=== PATIENT | female | born 1935 | race Caucasian/White ===

== ENCOUNTER → 2017-06-08 | Outpatient (CLI) | payer MEDICARE ==
[~2017-06-08] MED LIST: ASPIRIN 32325 MG/TAB PO; CATAPRES-TTS 20.2 M1 TD; COREG 25MG25 MG/TAB PO; CRANBERRY FRUI405 MG PO; DEMADEX 20MG20 M1 PO; ISOSORBIDE MON120 MG PO; K-DUR20 MEQ PO; KLONOPIN 0.5MG0.5 MG PO; LEVAQUIN 5500 MG/TA1 PO; LEVEMIR100 U/ML SQ; LIPITOR 80MG80 MG PO; MULTI VITAMINS1 TAB PO; NITRO-DUR0.1 MG/PAT TD; NITROSTAT0.4 MG/TAB SL; NOVOLOG FLEX100 U/ML SQ; PAXIL 20MG20 MG PO; PLAVIX 75MG TAB75 MG PO; PRILOSEC 20MG20 MG PO; PRINIVIL10 MG PO; REMERON 15M15 MG/TA1 PO; SYNTHROID 0.0.025 MG PO; VITAMIN C500 MG PO; ZANTAC 150150 MG
== END ==
LOC: COL.RAD 14:56
DX: Z01.812 Encounter for preprocedural laboratory examination (principal); R06.02 Shortness of breath
CPT/HCPCS: J7050; Q9967

== ENCOUNTER 2017-06-27 02:31 | Inpatient (IN) | payer MEDICARE ==
[~2017-06-27] VITALS: Ht 157.5 cm; Wt 79.1 kg
[2017-06-27] VITALS (224 sets, daily range): BP systolic 73–216; BP diastolic 31–96; PULSE 55–92; TEMP 98.1–101.6; O2SAT 80–100
[2017-06-27 03:31] LABS: BASO % 0.3 % (0.0-2.0); EOS # 0.1 (0.0-0.7); GRAN # 4.8 (1.4-6.5); GRAN % 71.5 % (42.2-75.2); LYMPH # 1.1 (1.2-3.4); LYMPH % 15.8 % (20.0-51.0); MEAN CELL VOLUME 95 fl (80.0-100.0); MEAN CORPUSCULAR HGB CONC 33 g/dl (33.0-37.0); MEAN PLATELET VOLUME 10.4 fl (7.4-10.4); MONO # 0.8 (0.1-0.6); MONO % 11.3 % (1.7-9.3); PLATELET COUNT 262 K/mm3 (130-400); RED BLOOD COUNT 3.35 M/mm3 (4.10-5.30); REDCELL DISTRIBUTION WIDTH-CV 13.2 % (11.5-14.5)
[2017-06-27 03:33] LABS: HEMATOCRIT 31.7 % (37.0-47.0); HEMOGLOBIN 10.3 g/dl (12.5-16.0); MEAN CORPUSCULAR HEMOGLOBIN 31 pg (27.0-31.0)
[2017-06-27 03:36] LABS: COLLECTION METHOD CATHETER
[2017-06-27 03:37] LABS: INFLUENZA A NEGATIVE; INFLUENZA B POSITIVE
[2017-06-27 03:42] LABS: ALBUMIN 3.6 gm/dL (3.5-5.0); BILIRUBIN,TOTAL 0.6 mg/dL (0.0-1.0); CALCIUM 9.1 mg/dL (8.4-10.2); CREATININE, serum 1.52 mg/dL (0.52-1.25); POTASSIUM 3.5 mmol/L (3.4-5.0)
[2017-06-27 03:44] LABS: HYALINE CAST >12 /lpf; MUCOUS Present /lpf; PH 5 (5-8); SQUAMOUS EPITHELIAL 0-2 /hpf; URINE APPEARANCE Cloudy; URINE BACTERIA Many /hpf; URINE BILIRUBIN Negative (NEGATIVE); URINE BLOOD 1+ (NEGATIVE); URINE COLOR Yellow; URINE GLUCOSE 1+ (NEGATIVE); URINE KETONE Negative (NEGATIVE); URINE LEUKOCYTE ESTERASE 2+ (NEGATIVE); URINE NITRATE Negative (NEGATIVE); URINE PROTEIN(semi-quant) 1+ (NEGATIVE); URINE RBC 0-2 /hpf; URINE UROBILINOGEN Negative (NEGATIVE)
[2017-06-28] VITALS (1341 sets, daily range): BP systolic 125–236; BP diastolic 42–94; PULSE 58–118; TEMP 99–102.1; O2SAT 30–100
[2017-06-28 06:09] LABS: BASO % 0.2 % (0.0-2.0); EOS # 0.1 (0.0-0.7); LYMPH # 1.2 (1.2-3.4); LYMPH % 25.1 % (20.0-51.0); MEAN CELL VOLUME 96 fl (80.0-100.0); MEAN CORPUSCULAR HGB CONC 32 g/dl (33.0-37.0); MEAN PLATELET VOLUME 10.9 fl (7.4-10.4); MONO # 0.6 (0.1-0.6); MONO % 12.5 % (1.7-9.3); PLATELET COUNT 229 K/mm3 (130-400); REDCELL DISTRIBUTION WIDTH-CV 13.4 % (11.5-14.5)
[2017-06-28 06:16] LABS: HEMATOCRIT 29.8 % (37.0-47.0); HEMOGLOBIN 9.5 g/dl (12.5-16.0); MEAN CORPUSCULAR HEMOGLOBIN 31 pg (27.0-31.0)
[2017-06-28 06:24] LABS: CALCIUM 7.8 mg/dL (8.4-10.2); CREATININE, serum 1.22 mg/dL (0.52-1.25)
[2017-06-28 08:01] LABS: ARTERIAL BLD GAS O2 SATURATION 96.9 % (92-100); ARTERIAL BLD GAS TCO2 CT 16.9; ARTERIAL BLOOD GAS HCO3 15.8 meq/L (22-26); ARTERIAL BLOOD GAS PCO2 34.7 mmHg (35-45); ARTERIAL BLOOD GAS PO2 107.1 mmHg (80-100); ARTERIAL BLOOD GAS pH 7.28 (7.35-7.45)
[2017-06-28 08:14] LABS: ARTERIAL BLD GAS O2 SATURATION 96.4 % (92-100); ARTERIAL BLOOD GAS BASE EXCESS -9.1 (-2-2); ARTERIAL BLOOD GAS PCO2 32.4 mmHg (35-45); ARTERIAL BLOOD GAS PO2 93.9 mmHg (80-100); ARTERIAL BLOOD GAS pH 7.31 (7.35-7.45)
[2017-06-28 09:09] LABS: ANION GAP 11 mmol/L (7-16); BLOOD UREA NITROGEN 23 mg/dL (7-17); CARBON DIOXIDE 20 mmol/L (22-30); CHLORIDE 105 mmol/L (98-107); CREATININE, serum 1.28 mg/dL (0.52-1.25); POTASSIUM 4.5 mmol/L (3.4-5.0); SODIUM 136 mmol/L (137-145)
[2017-06-28 09:17] LABS: GLUCOSE 505 mg/dL (74-106)
[2017-06-28 09:26] LABS: ACETONE,SERUM NEGATIVE
[2017-06-29] VITALS (950 sets, daily range): BP systolic 118–156; BP diastolic 36–75; PULSE 64–79; TEMP 98.3–99.3; O2SAT 38–100
[2017-06-29 05:33] LABS: BASO % 0.2 % (0.0-2.0); EOS # 0.1 (0.0-0.7); EOS % 1.1 % (0-4.0); GRAN # 3.2 (1.4-6.5); GRAN % 59.7 % (42.2-75.2); LYMPH # 1.6 (1.2-3.4); LYMPH % 30.3 % (20.0-51.0); MEAN CELL VOLUME 97 fl (80.0-100.0); MEAN CORPUSCULAR HGB CONC 32 g/dl (33.0-37.0); MEAN PLATELET VOLUME 10.7 fl (7.4-10.4); MONO # 0.4 (0.1-0.6); MONO % 8.3 % (1.7-9.3); PLATELET COUNT 195 K/mm3 (130-400); RED BLOOD COUNT 3.07 M/mm3 (4.10-5.30); REDCELL DISTRIBUTION WIDTH-CV 13.7 % (11.5-14.5)
[2017-06-29 05:39] LABS: HEMATOCRIT 29.7 % (37.0-47.0); HEMOGLOBIN 9.5 g/dl (12.5-16.0); MEAN CORPUSCULAR HEMOGLOBIN 31 pg (27.0-31.0)
[2017-06-29 05:42] LABS: CALCIUM 7.7 mg/dL (8.4-10.2); CREATININE, serum 1.28 mg/dL (0.52-1.25); MAGNESIUM 1.7 mg/dL (1.6-2.3); PHOSPHOROUS 3.4 mg/dL (2.5-4.5); POTASSIUM 3.5 mmol/L (3.4-5.0)
[2017-06-30 03:57] VITALS: BP 175/54; PULSE 72; TEMP 98.9
[2017-06-30 07:29] LABS: BASO % 0.2 % (0.0-2.0); EOS # 0.2 (0.0-0.7); EOS % 4.2 % (0-4.0); GRAN # 2.7 (1.4-6.5); GRAN % 52.6 % (42.2-75.2); LYMPH # 1.8 (1.2-3.4); LYMPH % 36.6 % (20.0-51.0); MEAN CELL VOLUME 98 fl (80.0-100.0); MEAN CORPUSCULAR HGB CONC 31 g/dl (33.0-37.0); MEAN PLATELET VOLUME 11.2 fl (7.4-10.4); MONO # 0.3 (0.1-0.6); MONO % 6.2 % (1.7-9.3); PLATELET COUNT 199 K/mm3 (130-400); RED BLOOD COUNT 3.04 M/mm3 (4.10-5.30); REDCELL DISTRIBUTION WIDTH-CV 13.8 % (11.5-14.5)
[2017-06-30 07:45] LABS: CALCIUM 8.7 mg/dL (8.4-10.2); CREATININE, serum 1.01 mg/dL (0.52-1.25); MAGNESIUM 2.4 mg/dL (1.6-2.3); PHOSPHOROUS 2.8 mg/dL (2.5-4.5); POTASSIUM 4.7 mmol/L (3.4-5.0)
[2017-06-30 07:47] LABS: HEMATOCRIT 29.8 % (37.0-47.0); HEMOGLOBIN 9.2 g/dl (12.5-16.0); MEAN CORPUSCULAR HEMOGLOBIN 30 pg (27.0-31.0)
[2017-06-30 08:40] VITALS: BP 180/91; PULSE 78; TEMP 97.7
[2017-06-30 11:48] VITALS: BP 152/72; PULSE 70; TEMP 99.5
[2017-06-30 16:41] VITALS: BP 205/75; PULSE 60; TEMP 98.4
[2017-06-30 19:43] VITALS: BP 196/61; PULSE 67; TEMP 97.9
[2017-06-30 23:55] VITALS: BP 218/69; PULSE 76; TEMP 98.3
[2017-07-01] VITALS (7 sets, daily range): BP systolic 144–198; BP diastolic 36–71; PULSE 64–81; TEMP 97.6–98.6
[2017-07-01 06:39] LABS: MEAN CELL VOLUME 97 fl (80.0-100.0); MEAN CORPUSCULAR HGB CONC 31 g/dl (33.0-37.0); MEAN PLATELET VOLUME 11.3 fl (7.4-10.4); PLATELET COUNT 187 K/mm3 (130-400); RED BLOOD COUNT 2.98 M/mm3 (4.10-5.30); REDCELL DISTRIBUTION WIDTH-CV 13.8 % (11.5-14.5)
[2017-07-01 06:50] LABS: CALCIUM 8.8 mg/dL (8.4-10.2); CREATININE, serum 0.78 mg/dL (0.52-1.25); POTASSIUM 4.3 mmol/L (3.4-5.0)
[2017-07-01 06:53] LABS: HEMATOCRIT 28.9 % (37.0-47.0); MEAN CORPUSCULAR HEMOGLOBIN 30 pg (27.0-31.0)
[2017-07-01 08:48] LABS: BAND 35 % (0-10); LYMPHOCYTE 34 % (20.0-51.0); MYELOCYTE 1 % (0-0); NEUTROPHILS 29 % (42.0-75.2); OVALOCYTES 1+; PLATELET ESTIMATE NORMAL (NORMAL)
[2017-07-02 03:32] VITALS: BP 186/69; PULSE 82; TEMP 98.9
[2017-07-02 04:40] VITALS: BP 168/63; PULSE 77
[2017-07-02 07:23] LABS: MEAN CELL VOLUME 97 fl (80.0-100.0); MEAN CORPUSCULAR HGB CONC 32 g/dl (33.0-37.0); MEAN PLATELET VOLUME 11.4 fl (7.4-10.4); PLATELET COUNT 215 K/mm3 (130-400); RED BLOOD COUNT 3.13 M/mm3 (4.10-5.30); REDCELL DISTRIBUTION WIDTH-CV 13.9 % (11.5-14.5)
[2017-07-02 07:24] LABS: HEMATOCRIT 30.2 % (37.0-47.0); HEMOGLOBIN 9.6 g/dl (12.5-16.0); MEAN CORPUSCULAR HEMOGLOBIN 31 pg (27.0-31.0)
[2017-07-02 07:34] LABS: CALCIUM 9.1 mg/dL (8.4-10.2); CREATININE, serum 0.79 mg/dL (0.52-1.25); POTASSIUM 3.9 mmol/L (3.4-5.0)
[2017-07-02 08:37] LABS: BAND 5 % (0-10); EOSINOPHIL 3 % (0-4); HYPOCHROMIA 2+; LYMPHOCYTE 22 % (20.0-51.0); NEUTROPHILS 67 % (42.0-75.2); PLATELET ESTIMATE NORMAL (NORMAL)
[2017-07-02 09:07] VITALS: BP 158/60; PULSE 72; TEMP 99
[2017-07-02 12:41] VITALS: BP 139/40; PULSE 66; TEMP 98.9
[2017-07-02 16:16] VITALS: BP 169/34; PULSE 60; TEMP 99.3
[2017-07-02 19:29] VITALS: BP 153/40; PULSE 66; TEMP 98.3
[2017-07-03 00:14] VITALS: BP 159/48; PULSE 71; TEMP 98.5
[2017-07-03 03:29] VITALS: BP 190/48; PULSE 68; TEMP 98.2
[2017-07-03 08:01] VITALS: BP 183/65; PULSE 87; TEMP 99.1
[2017-07-03 12:13] VITALS: BP 177/54; PULSE 65; TEMP 98.5
[2017-07-03 15:48] VITALS: BP 172/56; PULSE 65; TEMP 98.2
[2017-07-03 20:14] VITALS: BP 169/52; PULSE 60; TEMP 98
[2017-07-04 00:18] VITALS: BP 124/43; PULSE 77; TEMP 98.2
[2017-07-04 03:45] VITALS: BP 161/50; PULSE 65; TEMP 99
[2017-07-04 08:04] VITALS: BP 194/68; PULSE 68; TEMP 98.2
[2017-07-04] MEDS ORDERED: IMDUR 60MG60 MG/TAB PO (09:56)
[2017-07-04] MEDS ORDERED: ZESTRIL 10MG10 MG PO (09:57)
[2017-07-04] MEDS ORDERED: NORVASC 5MG5 MG/TAB PO (09:57)
[2017-07-04] MEDS ORDERED: LEVEMIR FLEX100 U/ML SQ (09:58)
[2017-07-04] MEDS ORDERED: NOVLOG SQ (09:58)
[2017-07-04] MEDS ORDERED: ZITHROMAX 250M250 MG PO (10:01)
[2017-07-04 10:02] VITALS: BP 195/55
[2017-07-04 10:17] VITALS: BP 172/64
[2017-07-04 12:25] VITALS: BP 154/49; PULSE 60; TEMP 98.3
== END 2017-07-04 12:52 | disposition home or self-care (01) | DRG 193 ==
LOC: COL.ER 02:31 → ICU 04:19 → MEDICAL 04:19 → ICU 14:30 → MEDICAL 06-29 18:10
PROVIDERS: Emergency Medicine; Internal Medicine; Internal Medicine Pulmonary Disease; Nurse Practitioner; Physician Assistant
PROC: 02HV33Z Insertion of Infusion Device into Superior Vena Cava, Percutaneous Approach (ICD-10-PCS; principal; 2017-06-27)
DX: J10.00 Influenza due to other identified influenza virus with unspecified type of pneumonia (principal); I50.33 Acute on chronic diastolic (congestive) heart failure; J96.01 Acute respiratory failure with hypoxia; N39.0 Urinary tract infection, site not specified; N17.9 Acute kidney failure, unspecified; I13.0 Hypertensive heart and chronic kidney disease with heart failure and stage 1 through stage 4 chronic kidney disease, or unspecified chronic kidney disease; E87.1 Hypo-osmolality and hyponatremia; I16.1 Hypertensive emergency; E87.2 Acidosis; E11.65 Type 2 diabetes mellitus with hyperglycemia; E11.22 Type 2 diabetes mellitus with diabetic chronic kidney disease; N18.9 Chronic kidney disease, unspecified; E87.6 Hypokalemia; I25.10 Atherosclerotic heart disease of native coronary artery without angina pectoris; B96.20 Unspecified Escherichia coli [E. coli] as the cause of diseases classified elsewhere; Z79.4 Long term (current) use of insulin; I73.9 Peripheral vascular disease, unspecified; Z87.891 Personal history of nicotine dependence; D64.9 Anemia, unspecified
CPT/HCPCS: 99223; 99223-AI; 99232-AI; 99233-AI; 99239; C1751; C1894; J0360; J0696; J1644; J1815; J1940; J2270; J2543; J3370; J3475; J7030; J7040; J7050

== ENCOUNTER → 2018-02-02 | Outpatient (REF) ==
[~2018-02-02] MED LIST changes: +IMDUR 60MG60 MG/TAB PO; +LEVEMIR FLEX100 U/ML SQ; +NORVASC 5MG5 MG/TAB PO; +NOVLOG SQ; +ZESTRIL 10MG10 MG PO; +ZITHROMAX 250M250 MG PO
[2018-02-02 09:36] LABS: COLLECTION METHOD CATHETER
[2018-02-02 09:50] LABS: MUCOUS Present /lpf; PH 6 (5-8); SQUAMOUS EPITHELIAL None Seen /hpf; URINE APPEARANCE Clear; URINE BACTERIA Occasional /hpf; URINE BILIRUBIN Negative (NEGATIVE); URINE BLOOD 3+ (NEGATIVE); URINE COLOR Yellow; URINE GLUCOSE Negative (NEGATIVE); URINE KETONE Negative (NEGATIVE); URINE LEUKOCYTE ESTERASE 1+ (NEGATIVE); URINE NITRATE Positive (NEGATIVE); URINE PROTEIN(semi-quant) 1+ (NEGATIVE); URINE RBC >50 /hpf; URINE UROBILINOGEN Negative (NEGATIVE)
== END ==
LOC: ZCOL.LAB 09:35 → ZLAB.STJ 09:35
PROVIDERS: Internal Medicine
DX: R41.82 Altered mental status, unspecified (principal)

== ENCOUNTER 2018-12-24 02:49 | Inpatient (IN) | payer MEDICARE ==
[~2018-12-24] VITALS: Ht 157.5 cm; Wt 79.5 kg
[2018-12-24 04:47] LABS: BASO % 0.2 % (0.0-2.0); EOS # 0.2 (0.0-0.7); EOS % 1.5 % (0-4.0); GRAN # 9.3 (1.4-6.5); GRAN % 81.6 % (42.2-75.2); HEMOGLOBIN 11.9 g/dl (12.5-16.0); LYMPH # 1.2 (1.2-3.4); LYMPH % 10.1 % (20.0-51.0); MEAN CELL VOLUME 97 fl (80.0-100.0); MEAN CORPUSCULAR HEMOGLOBIN 32 pg (27.0-31.0); MEAN CORPUSCULAR HGB CONC 33 g/dl (33.0-37.0); MEAN PLATELET VOLUME 10.4 fl (7.4-10.4); MONO # 0.7 (0.1-0.6); MONO % 6.2 % (1.7-9.3); PLATELET COUNT 280 K/mm3 (130-400); RED BLOOD COUNT 3.76 M/mm3 (4.10-5.30); REDCELL DISTRIBUTION WIDTH-CV 14.8 % (11.5-14.5)
[2018-12-24 04:49] LABS: HEMATOCRIT 36.6 % (37.0-47.0)
[2018-12-24 04:52] LABS: INR 0.9 (0.8-3.0); PROTHROMBIN TIME 10.9 SECONDS (9.7-12.8)
[2018-12-24 04:55] LABS: PARTIAL THROMBOPLASTIN TIME 26.9 SECONDS (26.0-37.0)
[2018-12-24] MEDS ORDERED: RANEXA 500MG T500 MG PO (04:57)
[2018-12-24] MEDS ORDERED: CATAPRES-TTS 20.2 M1 TD (05:10)
[2018-12-24] MEDS ORDERED: LASIX 20MG TABL20 MG PO ×2 (05:10→05:16)
[2018-12-24 05:11] LABS: TROPONIN-I 0.029 ng/mL (0.000-0.035)
[2018-12-24] MEDS ORDERED: PAXIL 20MG20 MG PO (05:17)
[2018-12-24] MEDS ORDERED: CIPRO 500MG TA500 MG PO (05:20)
[2018-12-24] MEDS ORDERED: PLAVIX 75MG TAB75 MG PO (05:21)
[2018-12-24] MEDS ORDERED: ISOSORBIDE MON120 MG PO (05:23)
[2018-12-24] MEDS ORDERED: KLONOPIN 0.5MG0.5 MG PO (05:23)
[2018-12-24 05:24] LABS: ALANINE AMINOTRANSFERASE < 6 U/L (9-52); ALBUMIN 3.8 gm/dL (3.5-5.0); ALKALINE PHOSPHATASE 90 U/L (50-136); ANION GAP 12 mmol/L (7-16); AST,SGOT 22 U/L (15-37); BILIRUBIN,TOTAL 0.6 mg/dL (0.0-1.0); BLOOD UREA NITROGEN 27 mg/dL (7-17); CALCIUM 9.2 mg/dL (8.4-10.2); CARBON DIOXIDE 24 mmol/L (22-30); CHLORIDE 106 mmol/L (98-107); CREATININE, serum 1.39 (0.52-1.25); GLUCOSE 142 mg/dL (74-106); POTASSIUM 3.8 mmol/L (3.4-5.0); SODIUM 143 mmol/L (137-145); TOTAL PROTEIN 7.5 gm/dL (6.4-8.2)
[2018-12-24] MEDS ORDERED: COREG 25MG25 MG/TAB PO (05:24)
[2018-12-24] MEDS ORDERED: ULTRAM 50MG TAB50 MG PO (05:24)
[2018-12-24] MEDS ORDERED: REMERON 15M15 MG/TA1 PO (05:24)
[2018-12-24] MEDS ORDERED: NITROSTAT0.4 MG/TAB SL (05:25)
[2018-12-24] MEDS ORDERED: THE MEDICINE S200 M2 PO (05:25)
[2018-12-24] MEDS ORDERED: NITRO-DUR0.2 MG/PAT TD (05:25)
[2018-12-24] MEDS ORDERED: LEVOXYL0.05 MG PO (05:26)
[2018-12-24] MEDS ORDERED: LIPITOR 80MG80 MG PO ×2 (05:26→20:10)
[2018-12-24] MEDS ORDERED: ZANTAC 300300 MG PO (05:26)
[2018-12-24] MEDS ORDERED: ARICEPT 5MG PO (05:27)
[2018-12-24] MEDS ORDERED: ASPIRIN 81M81 MG/TA2 PO (08:12)
[2018-12-24] MEDS ORDERED: NOVOLOG FLEX100 U/ML SQ (08:13)
[2018-12-24] MEDS ORDERED: LEVEMIR100 U/ML SQ (08:13)
--- NOTE | 2018-12-24 10:51 | NUR ---
Dr Doll notified of consult.
[2018-12-24 11:02] VITALS: BP 184/58; PULSE 65; TEMP 98.8
--- NOTE | 2018-12-24 11:30 | NUR ---
Patient alert and oriented, answers questions appropriately. See initial assessment. Lungs decreased in bases, clear in upper lobes. Heart tones audible. Pulses palpable. No edema noted. INT in right foot, flushes well. No c/o at this time.
[2018-12-24 16:35] VITALS: BP 184/60; PULSE 76; TEMP 98.5
[2018-12-24 20:10] VITALS: BP 186/54; PULSE 65; TEMP 98.9
[2018-12-24 23:34] VITALS: BP 190/77
[2018-12-24 23:45] VITALS: BP 155/79; PULSE 90; TEMP 97.8
--- NOTE | 2018-12-24 23:51 | NUR ---
Patient blood pressure elevated when this nurse came on shift. Daughter spoke with this nurse about Lasix order and she was told it was going to be BID. Terra called for clarification. Ordered a 1x dose of 40mg IV Lasix to be given now, along with the hydralazine. Medications administered and education provided to daughter and patient. Blood pressure recheck continued to be elevated. Terra notified at 2310 of elevated blood pressure of 190/77. Ordered another dose of 20mg IV Hydralazine and to recheck blood pressure in 15 minutes. At 2330 patient's blood pressure was 155/79. Terra updated. Patient in no distress during any of the hypertension. Noted to grunt when she breathes, but states she has no shortness of breath. Slight edema noted to upper arms. Daughter states she thinks her face looks a little puffier than normal. Bilateral lung bases diminished. Will continue to monitor patient closely.
[2018-12-25] VITALS (8 sets, daily range): BP systolic 72–168; BP diastolic 46–80; PULSE 57–94; TEMP 97.9–99.1
--- NOTE | 2018-12-25 00:15 | NUR ---
BP rechecked. Patient continent in pullup. Denies need for toileting.
--- NOTE | 2018-12-25 05:58 | NUR ---
Patient continued to be nauseous until Phenergan was given and she stated this was effective. Noted to rest better after this. Incontinence cares provided this shift by staff. Patient denies any other needs.
--- NOTE | 2018-12-25 07:19 | NUR ---
Report from Silva SHAHID.
[2018-12-25 08:02] LABS: BASO % 0.3 % (0.0-2.0); EOS # 0.2 (0.0-0.7); EOS % 2.6 % (0-4.0); GRAN # 6.1 (1.4-6.5); HEMATOCRIT 38.3 % (37.0-47.0); HEMOGLOBIN 12.5 g/dl (12.5-16.0); LYMPH # 1.7 (1.2-3.4); LYMPH % 19.5 % (20.0-51.0); MEAN CELL VOLUME 96 fl (80.0-100.0); MEAN CORPUSCULAR HEMOGLOBIN 31 pg (27.0-31.0); MEAN CORPUSCULAR HGB CONC 33 g/dl (33.0-37.0); MONO # 0.7 (0.1-0.6); MONO % 8.4 % (1.7-9.3); PLATELET COUNT 289 K/mm3 (130-400); REDCELL DISTRIBUTION WIDTH-CV 14.7 % (11.5-14.5)
[2018-12-25 08:25] LABS: CALCIUM 9.7 mg/dL (8.4-10.2); CREATININE, serum 1.51 (0.52-1.25); POTASSIUM 3.6 mmol/L (3.4-5.0)
--- NOTE | 2018-12-25 10:22 | NUR ---
PT UP TO SIDE OF BED WITH OT, AM MEDS GIVEN. IV TO RIGHT FOOT. ASKED FOR AND RECIEVED ORDER FOR PICC LINE PLACEMENT. PT BACK TO BED AFTER THERAPY NOW SLEEPING.
--- NOTE | 2018-12-25 11:49 | NUR ---
PT O2 SATS DROPPING WHEN SLEEPING PLACED PT ON OXYMASK WITH [address] WORKMAN AND CLAUDINE JENKINS.
--- NOTE | 2018-12-25 14:30 | NUR ---
Attempted to obtain consent for PICC placement by patient. Patient unable to give consent. Attempted to contact patient's daughter and her cell phone is unable to receive placement on messages at this time. Started number 20 Angiocath peripheral IV in right AC area with ultasound. Primary care nurse remove IV site in her foot. Plan is to place PICC in a.m.
--- NOTE | 2018-12-25 15:31 | NUR ---
CARL met with the patient to discuss discharge plan. The patient lives in [place] with her daughter, Dana (ph#[phone]). She reports independence with ADLs and has a cane, walker, and wheelchair. She states she does not have any home health services. The patient's PCP is Dr. Keanu Benavides and she receives her medications at the [facility] in [place]. She reports no difficulties obtaining her meds. The patient does not have advanced directives and she was not interested in completing them at this time. CARL then discussed occupational therapies recommendation of home health. The patient reports that she is not interested in any home health services at this time. SW to continue to follow to ensure a safe discharge.
--- NOTE | 2018-12-25 18:55 | NUR ---
REPORT TO AMY SHAHID.
--- NOTE | 2018-12-25 21:00 | NUR ---
HS meds reviewed and given. Patient drowsy at this time. See vitals/low bp reading and then done manually RA. Patient quiet and denies pain or needs. States is not short of breath. Oxymask on 3.5l oxygen.
[2018-12-26] VITALS (10 sets, daily range): BP systolic 92–160; BP diastolic 37–68; PULSE 59–75; TEMP 97.5–98.9
--- NOTE | 2018-12-26 00:15 | NUR ---
BP rechecked by this nurse. Patient initially resting with eyes closed. Denies need for toileting. Continent in pullup at this time.
--- NOTE | 2018-12-26 02:16 | NUR ---
Patient rests on right side. Respirations with ease.
--- NOTE | 2018-12-26 05:28 | NUR ---
Awakened for am med and returns to resting with eyes closed. Has had quiet night.
--- NOTE | 2018-12-26 10:49 | NUR ---
Patient up in chair. She did well with breakfast. Patient Bp rechecked. Used larger cuff size on upper arm & did even check on forearm with smaller cuff. Patient Bp very varied between arms-hospitalist team made aware. Patient not yet given her am meds, also not yet obtained am labs. Labs team unable to draw blood-senior data warehouse architect made aware.
--- NOTE | 2018-12-26 12:08 | NUR ---
First visit from the photo studio assistant. No needs right now.
[2018-12-26 12:16] LABS: BASO % 0.3 % (0.0-2.0); EOS # 0.4 (0.0-0.7); EOS % 4.1 % (0-4.0); GRAN # 6.6 (1.4-6.5); GRAN % 73.5 % (42.2-75.2); HEMOGLOBIN 11.4 g/dl (12.5-16.0); LYMPH # 1.3 (1.2-3.4); LYMPH % 14.5 % (20.0-51.0); MEAN CELL VOLUME 99 fl (80.0-100.0); MEAN CORPUSCULAR HEMOGLOBIN 32 pg (27.0-31.0); MEAN CORPUSCULAR HGB CONC 32 g/dl (33.0-37.0); MEAN PLATELET VOLUME 10.6 fl (7.4-10.4); MONO # 0.7 (0.1-0.6); MONO % 7.4 % (1.7-9.3); PLATELET COUNT 241 K/mm3 (130-400); RED BLOOD COUNT 3.61 M/mm3 (4.10-5.30); REDCELL DISTRIBUTION WIDTH-CV 14.4 % (11.5-14.5)
[2018-12-26 12:20] LABS: HEMATOCRIT 35.8 % (37.0-47.0)
[2018-12-26 12:21] LABS: CALCIUM 8.7 mg/dL (8.4-10.2); CREATININE, serum 2.12 (0.52-1.25); MAGNESIUM 1.9 mg/dL (1.6-2.3); POTASSIUM 3.9 mmol/L (3.4-5.0)
--- NOTE | 2018-12-26 13:30 | NUR ---
CARL met with the patient and patient's daughter, Dana, to review discharge plan and to discuss occupational therapies recommendation of home health and how she is walking 150 ft with physical therapy. The patient reports that she would like to return home. The patient's daughter reports that the patient has been to [facility] in the past and that they may be considering SNF upon discharge. The patient's daughter reports that she would like to discuss SNF with the patient and then come to a decision on home health vs SNF. CARL to follow up with the patient and patient's daughter tomorrow morning, 12/27. CARL to continue to follow.
[2018-12-26 15:49] LABS: COLLECTION METHOD CLEAN CATCH
[2018-12-26 16:09] LABS: MUCOUS Present /lpf; PH 5 (5-8); URINE APPEARANCE Hazy; URINE BACTERIA None Seen /hpf; URINE BILIRUBIN Negative (NEGATIVE); URINE BLOOD Negative (NEGATIVE); URINE COLOR Yellow; URINE GLUCOSE 3+ (NEGATIVE); URINE KETONE Negative (NEGATIVE); URINE LEUKOCYTE ESTERASE Negative (NEGATIVE); URINE NITRATE Negative (NEGATIVE); URINE PROTEIN(semi-quant) 2+ (NEGATIVE); URINE RBC 0-2 /hpf; URINE UROBILINOGEN Negative (NEGATIVE)
--- NOTE | 2018-12-26 17:33 | NUR ---
Patient resting in bed. Hospitalist team & Cardiology saw patient today, plan of care was extensively reviewed with patient & her daughter. Orders obtained. With only strictly take BP on right arm, due to cardiac history. Tele on. Patient has been using the bathroom independently & Ua was sent to lab. IVF started to Rac per orders. After mutiple attempts labs were finally drawn by RT. Overall patient has had minimal needs or compaints today. Social work involved in discharge planning.
--- NOTE | 2018-12-26 20:30 | NUR ---
Patient report received from ZEHRA Lieberman at shift change. Upon assessment at this time the patient is resting comfortably in bed. Patient denies pain and n/v. IV fluids infusing at 60 ml/hr through R AC. Ice and ice water provided, no other needs reported/observed.
[2018-12-27] VITALS (8 sets, daily range): BP systolic 115–160; BP diastolic 42–88; PULSE 63–88; TEMP 96.5–98.9
--- NOTE | 2018-12-27 05:50 | NUR ---
Patient called out complaining of SOA. Upon assessment patient was sitting on the side of the bed, complaints of severe SOA, diaphorectic, oxygen in the mid 80's on 2.0 L NC, heart rate elevated into the 110's, blood sugar 192. Oxygen increased to 5 L NC, with no increase in sats. Patient placed on 5 L oxymask, sats at 90%. Terra called, requested for her to come see the patient. RT called for breathing treatment and ABG and Bipap. Rad called for portable chest x-ray.
[2018-12-27 05:53] LABS: BASO % 0.3 % (0.0-2.0); EOS # 0.4 (0.0-0.7); EOS % 4.4 % (0-4.0); GRAN # 7.3 (1.4-6.5); HEMATOCRIT 37.6 % (37.0-47.0); HEMOGLOBIN 12.3 g/dl (12.5-16.0); LYMPH # 1.4 (1.2-3.4); LYMPH % 14.4 % (20.0-51.0); MEAN CELL VOLUME 97 fl (80.0-100.0); MEAN CORPUSCULAR HEMOGLOBIN 32 pg (27.0-31.0); MEAN CORPUSCULAR HGB CONC 33 g/dl (33.0-37.0); MEAN PLATELET VOLUME 10.6 fl (7.4-10.4); MONO # 0.6 (0.1-0.6); MONO % 5.6 % (1.7-9.3); PLATELET COUNT 262 K/mm3 (130-400); RED BLOOD COUNT 3.87 M/mm3 (4.10-5.30); REDCELL DISTRIBUTION WIDTH-CV 14.6 % (11.5-14.5)
[2018-12-27 05:59] LABS: CALCIUM 8.7 mg/dL (8.4-10.2); CREATININE, serum 1.81 (0.52-1.25); POTASSIUM 4.1 mmol/L (3.4-5.0)
--- NOTE | 2018-12-27 06:15 | NUR ---
Patient seen by provider, breathing treatment given, ABG obtained and Bipap started by RT. 40 mg Lasix IV given to diuresis. Patient tolerated Bipap well, Sats in mid 90's and heart rate back to baseline in the 80's. Vitals now stable.
[2018-12-27 06:19] LABS: ARTERIAL BLD GAS O2 SATURATION 96.3 % (92-100); ARTERIAL BLOOD GAS BASE EXCESS -0.6 (-2-2); ARTERIAL BLOOD GAS HCO3 26.3 meq/L (22-26); ARTERIAL BLOOD GAS PCO2 52.8 mmHg (35-45); ARTERIAL BLOOD GAS PO2 94.9 mmHg (80-100); ARTERIAL BLOOD GAS pH 7.32 (7.35-7.45)
[2018-12-27 08:42] LABS: ARTERIAL BLD GAS O2 SATURATION 93.6 % (92-100); ARTERIAL BLD GAS TCO2 CT 26.5; ARTERIAL BLOOD GAS BASE EXCESS -0.1 (-2-2); ARTERIAL BLOOD GAS HCO3 25.2 meq/L (22-26); ARTERIAL BLOOD GAS PCO2 43.4 mmHg (35-45); ARTERIAL BLOOD GAS PO2 71.4 mmHg (80-100); ARTERIAL BLOOD GAS pH 7.38 (7.35-7.45)
--- NOTE | 2018-12-27 09:30 | NUR ---
CARL met with the patient and patient's daughter, Dana, to follow up on preference for home health vs SNF. The patient's daughter report that they are interested is SNF. CARL presented the patient and patient's daughter with the patient choice form. The patient and patient's daughter preferred [facility]. They did not have a second preference at this time. Patient choice form signed by the patient's daughter and she was provided a copy. CARL then contacted and faxed a referral to Chantelle at [facility]. SW awaiting their screening.
--- NOTE | 2018-12-27 09:52 | NUR ---
Patient up to the chair this am. She was up to the bathroom & voided, she had a saturated incontinent brief, will try to keep I&O. rounded & plan of care reviewed. Patient eating breakfast, fluid restriction discussed. Patient Int to Rac. She overall reports feeling much improved this am. Her daughter at bedside. Will await cardiology to round today.
--- NOTE | 2018-12-27 10:18 | NUR ---
Chantelle, at [facility], reports that they can accept the patient for a skilled stay. SW to inform the patient and her daughter and will continue to follow.
--- NOTE | 2018-12-27 11:15 | NUR ---
Patient sleeping soundly in bed. She reported being very exhausted after being up overnight.
--- NOTE | 2018-12-27 18:56 | NUR ---
Patient sitting up in bed eating dinner. No insulin with dinner. Vss. Tele on. Patient continued to sleep most of the day. denies pain.
--- NOTE | 2018-12-27 21:45 | NUR ---
Patient reports a headache across her forehead. Medicated with Tylenol 650mg with her HS meds. Assisted to the bathroom. Pt already has a soaked depends, new placed on patient after paola care provided. After in bed, pt asks for oxygen, placed on 1L/NC. Drinks Diet pop of 360cc at this time.
[2018-12-28] VITALS (7 sets, daily range): BP systolic 121–185; BP diastolic 44–77; PULSE 58–84; TEMP 97.8–99
[2018-12-28 07:24] LABS: BASO % 0.2 % (0.0-2.0); EOS # 0.4 (0.0-0.7); EOS % 5.2 % (0-4.0); GRAN # 5.4 (1.4-6.5); GRAN % 65.8 % (42.2-75.2); HEMOGLOBIN 11.6 g/dl (12.5-16.0); LYMPH # 1.7 (1.2-3.4); MEAN CELL VOLUME 97 fl (80.0-100.0); MEAN CORPUSCULAR HEMOGLOBIN 31 pg (27.0-31.0); MEAN CORPUSCULAR HGB CONC 32 g/dl (33.0-37.0); MEAN PLATELET VOLUME 10.5 fl (7.4-10.4); MONO # 0.6 (0.1-0.6); MONO % 7.6 % (1.7-9.3); PLATELET COUNT 264 K/mm3 (130-400); RED BLOOD COUNT 3.72 M/mm3 (4.10-5.30); REDCELL DISTRIBUTION WIDTH-CV 14.5 % (11.5-14.5)
[2018-12-28 07:27] LABS: HEMATOCRIT 36.1 % (37.0-47.0)
[2018-12-28 07:39] LABS: CALCIUM 9.1 mg/dL (8.4-10.2); CREATININE, serum 1.58 (0.52-1.25); MAGNESIUM 2.2 mg/dL (1.6-2.3); POTASSIUM 3.5 mmol/L (3.4-5.0)
--- NOTE | 2018-12-28 08:57 | NUR ---
CARL contacted and faxed updates to Chantelle at [facility]. SW to continue to follow.
--- NOTE | 2018-12-28 12:01 | NUR ---
Assessment completed, alert/oriented, vital signs stable, denies pain, reports her breathing is easier this morninng, lungs CTA/ diminished, she is not requiring supplemental Oxygen at this time, heart RRR, distal pulses are palpable, has been by and not making many changes in plan of care today, plan for D/C to [facility] SNF tommoroow 12/29/18
--- NOTE | 2018-12-28 21:30 | NUR ---
Patient in bed, visitor at bedside. Reports shortness of breath with exertion, wants oxygen at for night. Placed on 1L/nc. Lungs with few crackles to bases. Takes HS meds without problem. Minimal edema to lower legs. Has small scratch to outer labia. Wearing depends and is mostly incontinent. Marisa cares provided.
--- NOTE | 2018-12-28 23:55 | NUR ---
Reports headache, Tylenol 650mg po at this time.
[2018-12-29 02:59] VITALS: BP 157/50; PULSE 61; TEMP 98.2
--- NOTE | 2018-12-29 03:29 | NUR ---
Has slept fair this shift. No extreme shortness of breath. Denies headache at this time.
[2018-12-29 06:46] LABS: BASO % 0.4 % (0.0-2.0); EOS # 0.4 (0.0-0.7); EOS % 5.4 % (0-4.0); GRAN # 3.9 (1.4-6.5); GRAN % 54.7 % (42.2-75.2); LYMPH # 2.2 (1.2-3.4); LYMPH % 30.2 % (20.0-51.0); MEAN CELL VOLUME 95 fl (80.0-100.0); MEAN CORPUSCULAR HEMOGLOBIN 32 pg (27.0-31.0); MEAN CORPUSCULAR HGB CONC 33 g/dl (33.0-37.0); MEAN PLATELET VOLUME 10.9 fl (7.4-10.4); MONO # 0.7 (0.1-0.6); PLATELET COUNT 254 K/mm3 (130-400); RED BLOOD COUNT 3.49 M/mm3 (4.10-5.30); REDCELL DISTRIBUTION WIDTH-CV 14.4 % (11.5-14.5)
[2018-12-29 07:06] LABS: CALCIUM 8.9 mg/dL (8.4-10.2); CREATININE, serum 1.44 (0.52-1.25); MAGNESIUM 2.2 mg/dL (1.6-2.3); POTASSIUM 3.6 mmol/L (3.4-5.0)
[2018-12-29 08:47] VITALS: BP 190/72; PULSE 63; TEMP 97.7
[2018-12-29] MEDS ORDERED: LASIX 20MG TABL20 MG PO (09:35)
[2018-12-29] MEDS ORDERED: NORVASC 5MG5 MG/TAB PO (09:36)
[2018-12-29] MEDS ORDERED: IPRATROPIUM BROM3 M1 IH (11:46)
[2018-12-29 12:08] VITALS: BP 159/51; PULSE 57; TEMP 98.6
[2018-12-29 12:32] VITALS: BP 178/57; PULSE 58; TEMP 98.7
--- NOTE | 2018-12-29 13:04 | NUR ---
The patient is to discharge today, 12/29, to [facility] for a skilled stay. Transportation was set for 1400, via [facility]. SW informed the patient, patient's daughter, and her nurse. They were all in agreeance. SW also presented and explained the IM form to the patient's daughter. The patient's daughter verbalized understanding, signed, and she was provided a copy. No additional needs at this time.
[2018-12-29 13:47] VITALS: BP 159/52; PULSE 58; TEMP 98.7
--- NOTE | 2018-12-29 14:00 | NUR ---
Patient ready for discharge. [facility] here to pick her up. Report called to nurse at [facility]. All questions answered. Patient has had a good day. She was up in chair, ambulated halls with therapy. Dyspnea with exertion. Patient daughter concerned. Hospitalist team rounded & reviewed plan of care. Patient INT dc. tele off. Patient assisted to dressed. She does have incontinence. Medicated with insulin per orders at lunch for elevated blood glucose.
== END 2018-12-29 14:00 | DRG 291 ==
LOC: COL.ER 02:49 → SURG 06:37
PROVIDERS: Emergency Medicine; Internal Medicine; Nurse Practitioner Family; Physician Assistant; ADMIT Family Medicine
DX: I11.0 Hypertensive heart disease with heart failure (principal); J96.01 Acute respiratory failure with hypoxia; N17.9 Acute kidney failure, unspecified; I50.33 Acute on chronic diastolic (congestive) heart failure; E03.9 Hypothyroidism, unspecified; E11.9 Type 2 diabetes mellitus without complications; I25.10 Atherosclerotic heart disease of native coronary artery without angina pectoris; E78.5 Hyperlipidemia, unspecified; J44.9 Chronic obstructive pulmonary disease, unspecified; K21.9 Gastro-esophageal reflux disease without esophagitis; F32.9 Major depressive disorder, single episode, unspecified; G47.33 Obstructive sleep apnea (adult) (pediatric); I25.2 Old myocardial infarction; Z79.82 Long term (current) use of aspirin; Z79.4 Long term (current) use of insulin; Z79.02 Long term (current) use of antithrombotics/antiplatelets; Z86.73 Personal history of transient ischemic attack (TIA), and cerebral infarction without residual deficits; Z87.891 Personal history of nicotine dependence; Z88.2 Allergy status to sulfonamides; Z88.5 Allergy status to narcotic agent; Z90.710 Acquired absence of both cervix and uterus
CPT/HCPCS: 99223-AI; 99231-AI; 99232-AI; 99233-AI; 99239; J0360; J1644; J1650; J1815; J1940; J2405; J2550; J7030

== ENCOUNTER 2019-01-02 03:22 | Observation (INO) | payer MEDICARE ==
[2019-01-02] VITALS (7 sets, daily range): BP systolic 104–217; BP diastolic 29–79; PULSE 54–73; TEMP 97.7–98.6
[~2019-01-02] VITALS: Ht 157.5 cm; Wt 85.2 kg
[~2019-01-02 03:22] MED LIST changes: +ARICEPT 5MG PO; +ASPIRIN 81M81 MG/TA2 PO; +CIPRO 500MG TA500 MG PO; +IPRATROPIUM BROM3 M1 IH; +LASIX 20MG TABL20 MG PO; +LEVOXYL0.05 MG PO; +NITRO-DUR0.2 MG/PAT TD; +RANEXA 500MG T500 MG PO; +THE MEDICINE S200 M2 PO; +ULTRAM 50MG TAB50 MG PO; +ZANTAC 300300 MG PO
[2019-01-02] MEDS ORDERED: TYLENOL SU650 MG/SUP RC (03:28)
[2019-01-02] MEDS ORDERED: DULCOLAX S10 MG/SUPP RC (03:28)
[2019-01-02] MEDS ORDERED: MILK OF MA400 MG/52 (03:29)
[2019-01-02] MEDS ORDERED: IMODIUM A-D2 MG PO (03:29)
[2019-01-02] MEDS ORDERED: ALMACONE 360 M360 ML PO (03:30)
[2019-01-02] MEDS ORDERED: TYLENOL 325MG325 MG PO (03:31)
[2019-01-02 03:41] LABS: ARTERIAL BLD GAS O2 SATURATION 98.8 % (92-100); ARTERIAL BLD GAS TCO2 CT 25.6; ARTERIAL BLOOD GAS HCO3 24.4 meq/L (22-26); ARTERIAL BLOOD GAS PCO2 38.9 mmHg (35-45); ARTERIAL BLOOD GAS pH 7.42 (7.35-7.45)
[2019-01-02 04:26] LABS: BASO % 0.2 % (0.0-2.0); EOS # 0.4 (0.0-0.7); EOS % 3.8 % (0-4.0); GRAN # 8.2 (1.4-6.5); GRAN % 76.3 % (42.2-75.2); HEMATOCRIT 36.6 % (37.0-47.0); HEMOGLOBIN 11.7 g/dl (12.5-16.0); LYMPH # 1.5 (1.2-3.4); LYMPH % 13.7 % (20.0-51.0); MEAN CELL VOLUME 97 fl (80.0-100.0); MEAN CORPUSCULAR HEMOGLOBIN 31 pg (27.0-31.0); MEAN CORPUSCULAR HGB CONC 32 g/dl (33.0-37.0); MEAN PLATELET VOLUME 10.1 fl (7.4-10.4); MONO # 0.6 (0.1-0.6); MONO % 5.8 % (1.7-9.3); PLATELET COUNT 280 K/mm3 (130-400); RED BLOOD COUNT 3.76 M/mm3 (4.10-5.30); REDCELL DISTRIBUTION WIDTH-CV 14.5 % (11.5-14.5)
[2019-01-02 04:36] LABS: ALANINE AMINOTRANSFERASE < 6 U/L (9-52); ALBUMIN 3.7 gm/dL (3.5-5.0); ALKALINE PHOSPHATASE 89 U/L (50-136); ANION GAP 9 mmol/L (7-16); AST,SGOT 23 U/L (15-37); BILIRUBIN,TOTAL 0.6 mg/dL (0.0-1.0); BLOOD UREA NITROGEN 25 mg/dL (7-17); CALCIUM 8.8 mg/dL (8.4-10.2); CARBON DIOXIDE 29 mmol/L (22-30); CHLORIDE 104 mmol/L (98-107); CREATININE, serum 1.58 (0.52-1.25); GLUCOSE 155 mg/dL (74-106); POTASSIUM 3.5 mmol/L (3.4-5.0); PROTHROMBIN TIME 11.5 SECONDS (9.7-12.8); SODIUM 141 mmol/L (137-145); TOTAL PROTEIN 7.5 gm/dL (6.4-8.2)
[2019-01-02 04:48] LABS: TROPONIN-I 0.066 ng/mL (0.000-0.035)
--- NOTE | 2019-01-02 06:47 | NUR ---
PATIENT ARRIVED TO FLOOR FROM ER VIA WC ACCOMPANIED BY ER NURSE AND GRANDDAUGHTER. A/O X 4. O2 2L/NC IN PLACE. SEE FLOWSHEET FOR FVS OBTAINED. IN NO DISTRESS. ATTITUDE CALM AND QUIET. ASSISTED TO CHANGE BRIEF D/T INCONTINENCE OF URINE. BRIEF SATURATED THROUGH. ABLE TO STAND UP ON OWN WITH STEADY GAIT. ATTEMPTED TO GET NEW IV SITE D/T CURRENT SITE BEING IN LEFT FOOT AND PATIENT DIABETIC. UNSUCESSFUL. CURRENTLY PATIENT LAYING IN BED RESTING DENIES NEEDS.
--- NOTE | 2019-01-02 07:29 | NUR ---
ATTEMPTED TO CALL DR MORALES CONCERNING USING RIGHT FOOT IV SITE OBTAINED BY EMS FOR IV LASIX. VOICE MESSAGE LEFT FOR HER TO CALL BACK.
--- NOTE | 2019-01-02 08:15 | NUR ---
appears to be sleeping, awakened and admission assessment completed with assistance of daughter, see assessment for further info, denies shortness of air at this time or pain
--- NOTE | 2019-01-02 08:55 | NUR ---
GREGORY Pascual notified of elevated troponin
--- NOTE | 2019-01-02 10:00 | NUR ---
attempted to start IV without success, Fior with [facility] notified and is asking for an order for a PICC line to be placed, GREGORY Pascual notified
--- NOTE | 2019-01-02 11:08 | NUR ---
Dr sEcobar and care team in to see patient, Fior MCGUIRE in to visit with daughter regarding PICC
--- NOTE | 2019-01-02 11:36 | NUR ---
awake and am scheduled meds given, daughter remains at bedside
--- NOTE | 2019-01-02 11:46 | NUR ---
CARL met with the patient and patient's daughter, Dana, to discuss discharge plan. The patient recently discharged, 12/29, and went to [facility] for a skilled stay. The patient's daughter reports that the plan is for the patient to return back to [facility] upon discharge. CARL presented and explained the patient choice form to the patient's daughter. The patient's daughter signed and she was provided a copy. CARL contacted and faxed updates to Chantelle at [facility]. CARL to continue to follow.
--- NOTE | 2019-01-02 11:59 | NUR ---
First visit from the dog daycare provider. No needs right now.
--- NOTE | 2019-01-02 12:00 | NUR ---
instructed patient and her daughter on ordering something to eat and verblaizews understanding
--- NOTE | 2019-01-02 13:22 | NUR ---
Fior MCGUIRE nurse in to place PICC
--- NOTE | 2019-01-02 15:31 | NUR ---
incontinent of urine and care provided
--- NOTE | 2019-01-02 16:15 | NUR ---
c/o being very hot, vital signs WNL and unable to explain to daughter why the patient might be hot, she states it feels stuffy in the room, offered fan but declined, denies shortness of breath or chest pain, rquests to have breathing treatment and cardiopulmonary notified
--- NOTE | 2019-01-02 17:09 | NUR ---
awake and resting in bed with daughter at bedside, denies needs at this time
--- NOTE | 2019-01-02 18:48 | NUR ---
bedside shift report given to ZEHRA Lindquist
--- NOTE | 2019-01-02 23:22 | NUR ---
PATIENT CURRENTLY LAYING INBED ASLEEP AT THIS TIME WITH 02 2L/NC IN PLACE. DAUGHTER JUST LEFT THE HOSPITAL AT THIS TIME. NO C/O RESPIRATORY DIFFICULTY OR SOA, NO CHEST PAIN. A/O X 4. ATTITUDE CALM AND QUIET.
[2019-01-03] VITALS (7 sets, daily range): BP systolic 82–126; BP diastolic 41–81; PULSE 51–61; TEMP 96.9–98.3
[2019-01-03 06:17] LABS: BASO % 0.4 % (0.0-2.0); EOS # 0.4 (0.0-0.7); EOS % 5.7 % (0-4.0); GRAN # 3.4 (1.4-6.5); GRAN % 51.2 % (42.2-75.2); LYMPH # 2.4 (1.2-3.4); LYMPH % 35.3 % (20.0-51.0); MEAN CELL VOLUME 100 fl (80.0-100.0); MEAN CORPUSCULAR HGB CONC 32 g/dl (33.0-37.0); MEAN PLATELET VOLUME 10.6 fl (7.4-10.4); MONO # 0.5 (0.1-0.6); MONO % 7.3 % (1.7-9.3); PLATELET COUNT 250 K/mm3 (130-400); RED BLOOD COUNT 3.02 M/mm3 (4.10-5.30); REDCELL DISTRIBUTION WIDTH-CV 14.6 % (11.5-14.5)
[2019-01-03 06:33] LABS: CALCIUM 8.6 mg/dL (8.4-10.2); CREATININE, serum 1.82 (0.52-1.25); MAGNESIUM 2.3 mg/dL (1.6-2.3); POTASSIUM 3.5 mmol/L (3.4-5.0)
[2019-01-03 06:53] LABS: HEMATOCRIT 30.1 % (37.0-47.0); HEMOGLOBIN 9.5 g/dl (12.5-16.0); MEAN CORPUSCULAR HEMOGLOBIN 31 pg (27.0-31.0)
--- NOTE | 2019-01-03 08:33 | NUR ---
Pt sleeping upon entry, no C/O pain at this time, shift assessments complete, left Pt call light in reach, bed in lowest position.
--- NOTE | 2019-01-03 17:03 | NUR ---
CARL contacted and faxed updates to Chantelle at [facility]. CARL informed Chantelle of the patient tentatively being ready to discharge tomorrow, 01/04. CARL to continue to follow.
--- NOTE | 2019-01-03 18:02 | NUR ---
Pt rested in room during the day, no C/O pain, has been up with assistance and is currently sitting up in the recliner, VS have remained stable.
[2019-01-03 18:17] LABS: HEMATOCRIT 30.1 % (37.0-47.0); HEMOGLOBIN 9.7 g/dl (12.5-16.0)
[2019-01-04] VITALS (7 sets, daily range): BP systolic 87–150; BP diastolic 41–96; PULSE 52–60; TEMP 97.3–98.8
--- NOTE | 2019-01-04 06:38 | NUR ---
PATIENT POC GLUCOSE 70. DENIES FEELING HYPOGLYCEMIC. A/O X 4. ATTITUDE CALM AND QUIET. 4 OZ ORANGE JIUCE GIVEN.
[2019-01-04 08:22] LABS: BASO % 0.4 % (0.0-2.0); EOS # 0.5 (0.0-0.7); EOS % 8.9 % (0-4.0); GRAN # 2.6 (1.4-6.5); GRAN % 50.6 % (42.2-75.2); LYMPH # 1.6 (1.2-3.4); LYMPH % 31.2 % (20.0-51.0); MEAN CELL VOLUME 99 fl (80.0-100.0); MEAN CORPUSCULAR HGB CONC 32 g/dl (33.0-37.0); MEAN PLATELET VOLUME 10.5 fl (7.4-10.4); MONO # 0.4 (0.1-0.6); MONO % 8.7 % (1.7-9.3); PLATELET COUNT 246 K/mm3 (130-400); RED BLOOD COUNT 3.09 M/mm3 (4.10-5.30); REDCELL DISTRIBUTION WIDTH-CV 14.5 % (11.5-14.5)
[2019-01-04 08:26] LABS: CALCIUM 8.8 mg/dL (8.4-10.2); CREATININE, serum 2.04 (0.52-1.25); POTASSIUM 3.7 mmol/L (3.4-5.0)
[2019-01-04 08:30] LABS: HEMATOCRIT 30.7 % (37.0-47.0); HEMOGLOBIN 9.8 g/dl (12.5-16.0); MEAN CORPUSCULAR HEMOGLOBIN 32 pg (27.0-31.0)
--- NOTE | 2019-01-04 09:00 | NUR ---
Assessment complete. Patient Sleeping, but easily awakened. Patient A&Ox3. VSS 2.5L NC O2, no reported SOB. PICC MANUEL, CDI. No further needs expressed from patient. Call light within reach.
[2019-01-04] MEDS ORDERED: ZESTRIL 5MG5 MG PO (09:28)
[2019-01-04] MEDS ORDERED: KLONOPIN 0.5MG0.5 MG PO (09:30)
[2019-01-04] MEDS ORDERED: LEVEMIR FLEX100 U/ML SQ (09:36)
--- NOTE | 2019-01-04 17:52 | NUR ---
Patient has had an uneventful day, spent most of the shift resting in bed. A&O, VSS, Denies pain and discomfort. O2 titrated to 1L. Patient tolerating well. Daughter at the bedside helping with patient cares. No further needs expressed from patient or daughter. Daughter assisting with ordering dinner. Call light within reach. Will continue to monitor
--- NOTE | 2019-01-04 20:20 | NUR ---
Shift assessment complete. Pt resting in bed, awake, a&o, cooperative c cares. Pt denies pain or any other c/o. PICC patent c good blood return. O2 per NC. Pt denies needs at this time. Call light in reach, will monitor.
[2019-01-05 03:40] VITALS: BP 137/46; PULSE 61; TEMP 98.1
--- NOTE | 2019-01-05 05:27 | NUR ---
Pt resting in bed, condition unchanged. Pt has rested well this shift c very few needs. No needs at this time. Call light in reach, bed alarm on.
[2019-01-05 08:07] LABS: BASO % 0.3 % (0.0-2.0); EOS # 0.4 (0.0-0.7); EOS % 6.2 % (0-4.0); GRAN # 3.2 (1.4-6.5); GRAN % 53.2 % (42.2-75.2); HEMOGLOBIN 10.1 g/dl (12.5-16.0); LYMPH # 1.9 (1.2-3.4); LYMPH % 31.3 % (20.0-51.0); MEAN CELL VOLUME 99 fl (80.0-100.0); MEAN CORPUSCULAR HEMOGLOBIN 31 pg (27.0-31.0); MEAN CORPUSCULAR HGB CONC 31 g/dl (33.0-37.0); MEAN PLATELET VOLUME 10.5 fl (7.4-10.4); MONO # 0.5 (0.1-0.6); MONO % 8.8 % (1.7-9.3); PLATELET COUNT 260 K/mm3 (130-400); RED BLOOD COUNT 3.24 M/mm3 (4.10-5.30); REDCELL DISTRIBUTION WIDTH-CV 14.3 % (11.5-14.5)
[2019-01-05 08:10] LABS: HEMATOCRIT 32.2 % (37.0-47.0)
[2019-01-05] MEDS ORDERED: CATAPRES-TTS 10.1 M1 TD (08:11)
[2019-01-05 08:17] LABS: CALCIUM 8.9 mg/dL (8.4-10.2); CREATININE, serum 2.03 (0.52-1.25); POTASSIUM 4.3 mmol/L (3.4-5.0)
[2019-01-05] MEDS ORDERED: NOVOLOG FLEX100 U/ML SQ (09:02)
[2019-01-05 09:09] VITALS: BP 143/49; PULSE 63; TEMP 97.8
[2019-01-05 11:43] VITALS: BP 123/55; PULSE 55; TEMP 98
[2019-01-05 13:21] LABS: IRON,SERUM 56 ug/dL (35-150)
[2019-01-05 13:30] LABS: TOTAL IRON BINDING CAPACITY 264 ug/dL (265-497)
[2019-01-05 13:58] LABS: FERRITIN 49 ng/mL (11-264)
[2019-01-05 14:23] VITALS: BP 123/55; PULSE 55; TEMP 98
--- NOTE | 2019-01-05 15:45 | NUR ---
Pt up to toilet, had bowel movement. Pt cleaned up, dressed and telemtry removed. Daughter gathered all belongings. PICC removed previously. All paperwork for osmel with daughter. Report called to osmel. Pt escorted out via wheelchair.
--- NOTE | 2019-01-05 16:04 | NUR ---
CARL spoke with patient and daughter about discharge to [facility] for senior living, PT and OT. Patient's daughter voiced concerns about returning to [facility]. CARL informed [facility] of this. Loren from [facility] contacted patient's daughter and resolved these issues. CARL faxed discharge orders. Patient's daughter will transport patient to [facility].
[2019-01-05 22:58] LABS: FOLATE (FOLIC ACID) 9.3 ng/mL (7.0-31.4)
== END 2019-01-05 15:45 ==
LOC: COL.ER 03:22 → MEDICAL 04:56
PROVIDERS: Emergency Medicine; Hospitalist; Nurse Practitioner; Nurse Practitioner Family; Physician Assistant; ADMIT Internal Medicine
DX: I13.0 Hypertensive heart and chronic kidney disease with heart failure and stage 1 through stage 4 chronic kidney disease, or unspecified chronic kidney disease (principal); E11.22 Type 2 diabetes mellitus with diabetic chronic kidney disease; I50.20 Unspecified systolic (congestive) heart failure; N18.9 Chronic kidney disease, unspecified; I25.10 Atherosclerotic heart disease of native coronary artery without angina pectoris; E78.5 Hyperlipidemia, unspecified; K21.9 Gastro-esophageal reflux disease without esophagitis; E03.9 Hypothyroidism, unspecified; J96.01 Acute respiratory failure with hypoxia; I16.0 Hypertensive urgency; I45.81 Long QT syndrome; D64.9 Anemia, unspecified; F32.9 Major depressive disorder, single episode, unspecified; G47.33 Obstructive sleep apnea (adult) (pediatric); Z79.4 Long term (current) use of insulin; Z79.02 Long term (current) use of antithrombotics/antiplatelets; Z90.49 Acquired absence of other specified parts of digestive tract; Z90.710 Acquired absence of both cervix and uterus; Z86.73 Personal history of transient ischemic attack (TIA), and cerebral infarction without residual deficits; Z87.891 Personal history of nicotine dependence; Z79.82 Long term (current) use of aspirin; Z88.2 Allergy status to sulfonamides; Z88.5 Allergy status to narcotic agent; Z88.6 Allergy status to analgesic agent; N17.9 Acute kidney failure, unspecified; Z82.49 Family history of ischemic heart disease and other diseases of the circulatory system; Z80.42 Family history of malignant neoplasm of prostate
CPT/HCPCS: 99232-AI; C1751; C1892; G0378; J1644; J1815; J1940

== ENCOUNTER 2019-08-08 15:17 | Emergency (ER) | payer MEDICARE ==
[~2019-08-08] VITALS: Ht 157.5 cm; Wt 73.6 kg
[~2019-08-08 15:17] MED LIST changes: +ALMACONE 360 M360 ML PO; +CATAPRES-TTS 10.1 M1 TD; +DULCOLAX S10 MG/SUPP RC; +IMODIUM A-D2 MG PO; +MILK OF MA400 MG/52; +TYLENOL 325MG325 MG PO; +TYLENOL SU650 MG/SUP RC; +ZESTRIL 5MG5 MG PO
[2019-08-08 15:26] VITALS: BP 141/63; TEMP 97.5
[2019-08-08 16:54] LABS: COLLECTION METHOD CLEAN CATCH
[2019-08-08 16:58] LABS: ALBUMIN 4.1 gm/dL (3.5-5.0); BILIRUBIN,TOTAL 0.7 mg/dL (0.0-1.0); CALCIUM 8.9 mg/dL (8.4-10.2); CREATININE, serum 1.99 (0.52-1.25); POTASSIUM 4.9 mmol/L (3.4-5.0); TOTAL PROTEIN 7.6 gm/dL (6.4-8.2)
[2019-08-08 17:04] LABS: PH 5 (5-8); SQUAMOUS EPITHELIAL None Seen /hpf; URINE APPEARANCE Clear; URINE BACTERIA None Seen /hpf; URINE BILIRUBIN Negative (NEGATIVE); URINE BLOOD Negative (NEGATIVE); URINE COLOR Yellow; URINE GLUCOSE Negative (NEGATIVE); URINE KETONE Negative (NEGATIVE); URINE LEUKOCYTE ESTERASE Negative (NEGATIVE); URINE NITRATE Negative (NEGATIVE); URINE PROTEIN(semi-quant) 1+ (NEGATIVE); URINE RBC 0-2 /hpf; URINE UROBILINOGEN Negative (NEGATIVE)
[2019-08-08 17:56] LABS: BASO % 0.3 % (0.0-2.0); EOS # 0.3 (0.0-0.7); EOS % 4.2 % (0-4.0); GRAN # 3.6 (1.4-6.5); GRAN % 60.3 % (42.2-75.2); HEMATOCRIT 38.5 % (37.0-47.0); HEMOGLOBIN 12.5 g/dl (12.5-16.0); LYMPH # 1.5 (1.2-3.4); LYMPH % 24.7 % (20.0-51.0); MEAN CELL VOLUME 99 fl (80.0-100.0); MEAN CORPUSCULAR HEMOGLOBIN 32 pg (27.0-31.0); MEAN CORPUSCULAR HGB CONC 33 g/dl (33.0-37.0); MEAN PLATELET VOLUME 11.8 fl (7.4-10.4); MONO # 0.6 (0.1-0.6); MONO % 10.2 % (1.7-9.3); PLATELET COUNT 144 K/mm3 (130-400); RED BLOOD COUNT 3.91 M/mm3 (4.10-5.30); REDCELL DISTRIBUTION WIDTH-CV 15.6 % (11.5-14.5)
[2019-08-08 18:26] VITALS: PULSE 70
== END 2019-08-08 18:26 | disposition home or self-care (01) ==
LOC: COL.ER 15:17 → MEDICAL 17:02 → COL.ER 17:02
PROVIDERS: Emergency Medicine
DX: R73.9 Hyperglycemia, unspecified (principal); R41.0 Disorientation, unspecified; H60.92 Unspecified otitis externa, left ear; I11.0 Hypertensive heart disease with heart failure; I50.9 Heart failure, unspecified; I25.10 Atherosclerotic heart disease of native coronary artery without angina pectoris; Z79.82 Long term (current) use of aspirin; Z79.4 Long term (current) use of insulin; Z79.02 Long term (current) use of antithrombotics/antiplatelets
CPT/HCPCS: J1815

== ENCOUNTER 2020-09-16 14:29 | Inpatient (IN) | payer MEDICARE ==
[~2020-09-16] VITALS: Ht 157.6 cm; Wt 72.0 kg
[2020-09-16 15:26] LABS: BASO % 0.4 % (0.0-2.0); EOS # 0.2 (0.0-0.7); EOS % 2.1 % (0-4.0); GRAN # 5.6 (1.4-6.5); GRAN % 79.6 % (42.2-75.2); HEMOGLOBIN 11.3 g/dl (12.5-16.0); LYMPH # 0.7 (1.2-3.4); LYMPH % 10.3 % (20.0-51.0); MEAN CELL VOLUME 99 fl (80.0-100.0); MEAN CORPUSCULAR HEMOGLOBIN 32 pg (27.0-31.0); MEAN CORPUSCULAR HGB CONC 32 g/dl (33.0-37.0); MONO # 0.5 (0.1-0.6); MONO % 7.3 % (1.7-9.3); PLATELET COUNT 346 K/mm3 (130-400); RED BLOOD COUNT 3.55 M/mm3 (4.10-5.30); REDCELL DISTRIBUTION WIDTH-CV 15.2 % (11.5-14.5)
[2020-09-16 15:37] LABS: ALBUMIN 3.9 gm/dL (3.5-5.0); BILIRUBIN,TOTAL 1.1 mg/dL (0.0-1.0); CALCIUM 8.7 mg/dL (8.4-10.2); CREATININE, serum 2.57 (0.52-1.25); POTASSIUM 4.2 mmol/L (3.4-5.0); TOTAL PROTEIN 7.4 gm/dL (6.4-8.2)
[2020-09-16 15:48] LABS: COLLECTION METHOD CLEAN CATCH
[2020-09-16 15:50] LABS: TROPONIN-I 0.109 ng/mL (0.000-0.035)
[2020-09-16 16:08] LABS: PH 5 (5-8); SQUAMOUS EPITHELIAL None Seen /hpf; URINE APPEARANCE Clear; URINE BACTERIA Rare /hpf; URINE BILIRUBIN Negative (NEGATIVE); URINE BLOOD Negative (NEGATIVE); URINE COLOR Yellow; URINE GLUCOSE Negative (NEGATIVE); URINE KETONE Negative (NEGATIVE); URINE LEUKOCYTE ESTERASE Negative (NEGATIVE); URINE NITRATE Negative (NEGATIVE); URINE PROTEIN(semi-quant) 2+ (NEGATIVE); URINE RBC 0-2 /hpf; URINE UROBILINOGEN Negative (NEGATIVE)
[2020-09-16] MEDS ORDERED: PEPCID 20MG TAB20 MG PO (16:24)
[2020-09-16 17:51] VITALS: BP 154/99; PULSE 78; TEMP 98.5
[2020-09-16 18:02] VITALS: BP 142/63; PULSE 66; TEMP 98.3
--- NOTE | 2020-09-16 18:21 | NUR ---
Patient arrived from ED with daughter at bedside. Patient is alert and oriented at this time, requests dinner. O2 at 1L via NC. Denies further needs, call light within reach.
--- NOTE | 2020-09-16 19:20 | NUR ---
Daughter of patient called desk stating patient couldnt breathe. SItting on side of bed-patient grunting-o2 saturation is 97% on 1L/NC. Lungs Clear bilat. Requesting breathing treatment. Daughter states she usually takes them Q4-6hrs PRN at home. Respiratory notified and at bedside for breathing treatment. Discussed home medications with daughter of patient. GREGORY Dominguez notified of new medications with phone order to continue. Also given phone order to administer 2100 lasix dose now- given IV slow push per order. Plan of care discussed with daughter/patient for this shift to include HS meds/breathing tx/O2/calling for questions/concerns. Call light in reach. Will monitor.
[2020-09-16] MEDS ORDERED: AFRIN 15 ML15 ML NS (19:32)
[2020-09-16 19:38] VITALS: BP 125/84; PULSE 88; TEMP 97.4
--- NOTE | 2020-09-16 22:30 | NUR ---
Incontinent of urine-care provided at this time. Placed external cath at this time with instruction on use. States she is short of breath and needs her O2. O2 is currently on via NC@2L. O2 saturation 99%. Repositioned in bed with pillow support. States she is very hot-placed fan closer. Discussed need for lab draw-had refused it earlier in shift. Is agreeable to lab draw now. Lab notified-will come to draw as soon as they can. Bed alarm on/call light in reach. Will monitor.
--- NOTE | 2020-09-16 23:10 | NUR ---
GREGORY Dominguez at bedside to see patient due to c/o shortness of air with no relief from O2 @2L/NC-sats WNL 96%-99% HOB is elevated 35-45% with no relief. VS stable.
[2020-09-17] VITALS (8 sets, daily range): BP systolic 115–142; BP diastolic 60–125; PULSE 75–101; TEMP 97.2–98.7
--- NOTE | 2020-09-17 00:24 | NUR ---
RT notified of need for breathing tx per patient request. Will come to administer.
[2020-09-17 01:13] LABS: ARTERIAL BLD GAS O2 SATURATION 85.6 % (92-100); ARTERIAL BLOOD GAS BASE EXCESS 2.2 (-2-2); ARTERIAL BLOOD GAS HCO3 26.9 meq/L (22-26); ARTERIAL BLOOD GAS PCO2 42.3 mmHg (35-45); ARTERIAL BLOOD GAS PO2 52.7 mmHg (80-100); ARTERIAL BLOOD GAS pH 7.42 (7.35-7.45)
--- NOTE | 2020-09-17 02:05 | NUR ---
Currently on BiPAP resting eyes closed. No s/s of discomfort noted. Rapid covid negative.
--- NOTE | 2020-09-17 03:10 | NUR ---
Very restless and removing BiPAP mask trying to get out of bed. States she cant breathe. BiPAP mask re-applied. States she needs a nerve shot. States she needs something to take the "edge off." Morphine given per dr order. Repositioned in bed with pillow support. Still cold/clammy. Blood sugar checked-139. Will continue to monitor.
--- NOTE | 2020-09-17 03:48 | NUR ---
Resting eyes closed-no s/s of pain/discomfort noted. BiPAP on. Call light in reach. Will monitor.
--- NOTE | 2020-09-17 05:34 | NUR ---
Refused Synthroid this morning stating "I dont want to take that now, maybe later."
--- NOTE | 2020-09-17 06:15 | NUR ---
0000- called by rn stating pt was short of breath and was requesting a breathing treatment because she was short of breath. 0031- breathing treatment was completed. VS WNL. pts WOB was increased and very labored. lips were cyantoic. after breathing treatment increased pts 02 to 4 lpm via nc. 0050- abg was done and was very dark. gave to RT Jt to run it for this RT while I place pt on BiPAP. 0100- placed pt on bipap due to low PaO2. pt remained on bipap for the rest of the night and said she is able to breath better and is feeling much better. pt is on documented settings neal well with no distress noted and is sleeping comfortably. will continue to monitor and assess.
--- NOTE | 2020-09-17 06:35 | NUR ---
Lab at bedside for lab draw. Unable to obtain.
--- NOTE | 2020-09-17 07:00 | NUR ---
Report received from ZEHRA Narvaez. Pt in bed resting with bipap in place, eyes closed, will continue to monitor.
--- NOTE | 2020-09-17 11:00 | NUR ---
Assessment charted. PT up with therapy to chair, did move well once up. 02 saturations hard to read on fingers because they are cool but after a few minutes was able toget a good read of 96%. Grunting often when breathing, per daughter at bedside this is normal for patient. LUngs are course and pt appears to be breathing labored. iNT to L finger, orders recieved for PICC placement. Pt denies pain, daughter at bedside, 02 switched to OM from NC because of mouth breathing. Will continue to monitor.
[2020-09-17 12:44] LABS: BASO % 0.4 % (0.0-2.0); EOS % 0.5 % (0-4.0); GRAN # 6.5 (1.4-6.5); GRAN % 81.1 % (42.2-75.2); HEMOGLOBIN 11.7 g/dl (12.5-16.0); LYMPH # 0.7 (1.2-3.4); LYMPH % 9.2 % (20.0-51.0); MEAN CELL VOLUME 99 fl (80.0-100.0); MEAN CORPUSCULAR HEMOGLOBIN 32 pg (27.0-31.0); MEAN CORPUSCULAR HGB CONC 32 g/dl (33.0-37.0); MEAN PLATELET VOLUME 9.9 fl (7.4-10.4); MONO # 0.7 (0.1-0.6); MONO % 8.5 % (1.7-9.3); PLATELET COUNT 366 K/mm3 (130-400); RED BLOOD COUNT 3.72 M/mm3 (4.10-5.30); REDCELL DISTRIBUTION WIDTH-CV 15.3 % (11.5-14.5)
[2020-09-17 12:46] LABS: HEMATOCRIT 36.9 % (37.0-47.0)
[2020-09-17 12:55] LABS: ALBUMIN 3.9 gm/dL (3.5-5.0); BILIRUBIN,TOTAL 1.7 mg/dL (0.0-1.0); CALCIUM 8.6 mg/dL (8.4-10.2); CREATININE, serum 2.75 (0.52-1.25); MAGNESIUM 3.5 mg/dL (1.6-2.3); POTASSIUM 4.1 mmol/L (3.4-5.0); TOTAL PROTEIN 7.4 gm/dL (6.4-8.2)
[2020-09-17 13:23] LABS: TROPONIN-I 0.488 ng/mL (0.000-0.035)
--- NOTE | 2020-09-17 16:27 | NUR ---
Nitroglycerin Separator Operator met with patient's daughter, Dana (ph#[phone]) to discuss discharge planning as patient is currently in [place]. Patient lives in [place] with Dana and sees Dr. Benavides for primary care. Dana picks up patient's medications from [facility] in [place], on [facility]. Dana reports that normally patient does not use any DME but the last 30 days or so, patient has been using a walker. Dana states she has also had to assist patient with all ADLS over the last month or so. Patient does not have Advance Directives. Patient has three children: Dana, Vicky, and Sandhya. SW reviewed PT's recommendation for SNF. Dana states patient has been to [facility] in the past and that would be their first preference. Dana is unsure of second preference at this time. SW contacted Chantelle at [facility] and faxed referral.
--- NOTE | 2020-09-17 17:55 | NUR ---
Pt resting in bed with eyes closed, appears to be the most at peace today right now. Daughter at bedside, has been very active in managing her care today and would like to be present for all doctor appointments tomorrow. 02 at 3L NC. Lasix gtt infusing, nickerson draining small amount of jeffery clear urine to DD. Will igve bedside report to [facility] nurse who will resume care.
--- NOTE | 2020-09-17 19:25 | NUR ---
Called Hospitalist to report critical lab value, called Dyan Fernando regarding urine protein lab results, paged Dr. Bellamy, no response call yet. Nightshift to resume care.
--- NOTE | 2020-09-17 23:48 | NUR ---
Patient resting in bed with eyes closed at shift start. No acute distress noted. Patient's daughter in the room. Patient awake at 2100. Shift assessment completed. Patient A/O x3. Patient denies any chest pain, N/V, headache, or dizziness. Breathing was slightly labored. Patient currently on 2L via NC. VS stable. All scheduled meds given per MAR. Patient swollowed pills without difficulty. Held Levemir tonight due to BS 121 and patient will be NPO from midnight. Lasix drip running at 5.5 ml/hr. Right upper arm PICC line has no s/s of complications. +2 pitting edema noted upper and lower extremities. Very minimal urine output at this time. Called Dr. Bellamy regarding critical lab value of Troponin 0.[address] Bellamy, we will do Shama scan tomorrow and NPO start from midnight. Called patient's daughter and updated regarding patient's condition and plan of care. Per daughter, she would like us to give patient Morphine in the morning before shama scan tomorrow due to patient's anxiety. Will endorse to day shift. Call light within reach. Patient denies any needs at this time.
[2020-09-18 04:01] VITALS: PULSE 89; TEMP 97.4
--- NOTE | 2020-09-18 06:21 | NUR ---
NPO STATUS MAINTAINED FROM MIDNIGHT. Patient's BS was 62 at 05:36 am. Patient denies any sympotoms of hypoglycemia. Called hospitalist MARILYN Ellison and received new order to start D5W IV. D5W IV started at 50ml/hr via right upper arm PICC line. Call light within reach. Will give report to day shift RN.
[2020-09-18 06:30] LABS: BASO % 0.4 % (0.0-2.0); EOS # 0.3 (0.0-0.7); EOS % 4.3 % (0-4.0); GRAN # 5.3 (1.4-6.5); GRAN % 71.2 % (42.2-75.2); HEMOGLOBIN 11.6 g/dl (12.5-16.0); LYMPH % 13.9 % (20.0-51.0); MEAN CELL VOLUME 98 fl (80.0-100.0); MEAN CORPUSCULAR HEMOGLOBIN 32 pg (27.0-31.0); MEAN CORPUSCULAR HGB CONC 32 g/dl (33.0-37.0); MEAN PLATELET VOLUME 10.4 fl (7.4-10.4); MONO # 0.7 (0.1-0.6); MONO % 9.9 % (1.7-9.3); PLATELET COUNT 368 K/mm3 (130-400); RED BLOOD COUNT 3.65 M/mm3 (4.10-5.30); REDCELL DISTRIBUTION WIDTH-CV 15.3 % (11.5-14.5)
[2020-09-18 06:32] LABS: HEMATOCRIT 35.9 % (37.0-47.0)
[2020-09-18 06:45] LABS: CALCIUM 8.7 mg/dL (8.4-10.2); CREATININE, serum 2.9 (0.52-1.25); POTASSIUM 3.6 mmol/L (3.4-5.0)
--- NOTE | 2020-09-18 07:08 | NUR ---
89% ON 2LPM, COARSE T/O, MARK WEL
--- NOTE | 2020-09-18 07:09 | NUR ---
PATIENT DID NOT WEAR BIPAP LAST NIGHT
[2020-09-18 08:39] VITALS: BP 123/85; PULSE 86; TEMP 98.4
[2020-09-18 11:37] VITALS: BP 131/68; PULSE 88; TEMP 98.2
--- NOTE | 2020-09-18 11:37 | NUR ---
Assessment completed, alert/oriented but she is hard of hearing, vital signs stable, on 2 L. o2, lungs are CTA but diminished throughout, she reports feeling SOA and I have notified hospitalist, Alessandra gtt continues, heart RRR/distal pulses are palpable, nickerson cath patent with clear yellow urine/ having good output, she has been NPO for Lexiscan but is refusing/ I have discussed plan of care with patient and her daughter, Daughter would like to speak with doctor and I have notified of this
--- NOTE | 2020-09-18 14:31 | NUR ---
Groundskeeper Supervisor faxed clinical updates to Chantelle at [facility]. Chantelle advised that they can accept patient as long as she is stable off intermittent bipap and is only using it at night.
[2020-09-18 16:20] VITALS: BP 112/74; PULSE 79; TEMP 97.9
[2020-09-18 20:23] VITALS: BP 124/73; PULSE 73; TEMP 97.7
[2020-09-18 23:44] VITALS: BP 108/76; PULSE 70; TEMP 98.1
[2020-09-19] VITALS (14 sets, daily range): BP systolic 78–142; BP diastolic 34–109; PULSE 61–79; TEMP 97.3–98.6
[2020-09-19 06:55] LABS: BASO % 0.4 % (0.0-2.0); EOS # 0.2 (0.0-0.7); EOS % 2.2 % (0-4.0); GRAN # 6.1 (1.4-6.5); GRAN % 78.2 % (42.2-75.2); HEMOGLOBIN 11.7 g/dl (12.5-16.0); LYMPH # 0.8 (1.2-3.4); LYMPH % 10.5 % (20.0-51.0); MEAN CELL VOLUME 98 fl (80.0-100.0); MEAN CORPUSCULAR HEMOGLOBIN 32 pg (27.0-31.0); MEAN CORPUSCULAR HGB CONC 33 g/dl (33.0-37.0); MEAN PLATELET VOLUME 10.6 fl (7.4-10.4); MONO # 0.7 (0.1-0.6); MONO % 8.3 % (1.7-9.3); PLATELET COUNT 362 K/mm3 (130-400); RED BLOOD COUNT 3.63 M/mm3 (4.10-5.30); REDCELL DISTRIBUTION WIDTH-CV 15.4 % (11.5-14.5)
[2020-09-19 06:59] LABS: HEMATOCRIT 35.7 % (37.0-47.0)
[2020-09-19 07:06] LABS: CALCIUM 8.6 mg/dL (8.4-10.2); CREATININE, serum 2.96 (0.52-1.25); POTASSIUM 3.7 mmol/L (3.4-5.0)
--- NOTE | 2020-09-19 07:46 | NUR ---
Assessment completed, alert/ partially oriented, vital signs have been stable, patient was on bi-pap but woke up and is hyperventilating and a little anxious/ worked up, I gave 1mg IV morphine and changed her over to o2 via NC and now patient breathing is improved and she has calmed down, lungs are diminished but CTA, heart RRR/distal pulses are palapble, nickerson patent with clear yellow urine/ lasix was stopped 09/18 and a 500cc bolus of IVF was given slowly/ creat unchanged at 2.9 still today, she is denies any pain or discomfort, she is scheduled for a Lexiscan this morning, she is NPO, will hold a.m meds for now, she denies other needs, call light in reach
--- NOTE | 2020-09-19 09:31 | NUR ---
Patient is being taken down to radiology by cart for a Nuc.med stress test
--- NOTE | 2020-09-19 11:00 | NUR ---
Patient returning from Stress test at this time, alert and responds to verbal cues, daughter in room and I have explained plan of care and that we will wait for results of stress test before we let her eat/ and will discuss with Cardiology, spent a significant amount of time in the room discussing the patient condition and plan of care with daughter
--- NOTE | 2020-09-19 16:20 | NUR ---
Water Quality Assistant faxed clinical updates to Chantelle at [facility]. SW contacted patient's daughter, Dana to update that [facility] can accept once medically cleared for discharge.
[2020-09-19 20:53] LABS: CALCIUM 8.2 mg/dL (8.4-10.2); CREATININE, serum 2.84 (0.52-1.25); POTASSIUM 3.9 mmol/L (3.4-5.0)
[2020-09-19 21:01] LABS: BASO % 0.2 % (0.0-2.0); EOS # 0.2 (0.0-0.7); EOS % 2.5 % (0-4.0); GRAN # 7.8 (1.4-6.5); GRAN % 85.2 % (42.2-75.2); HEMOGLOBIN 10.9 g/dl (12.5-16.0); LYMPH # 0.5 (1.2-3.4); LYMPH % 5.8 % (20.0-51.0); MEAN CELL VOLUME 100 fl (80.0-100.0); MEAN CORPUSCULAR HEMOGLOBIN 32 pg (27.0-31.0); MEAN CORPUSCULAR HGB CONC 32 g/dl (33.0-37.0); MEAN PLATELET VOLUME 10.5 fl (7.4-10.4); MONO # 0.5 (0.1-0.6); MONO % 5.9 % (1.7-9.3); PLATELET COUNT 329 K/mm3 (130-400); RED BLOOD COUNT 3.44 M/mm3 (4.10-5.30); REDCELL DISTRIBUTION WIDTH-CV 15.6 % (11.5-14.5)
[2020-09-19 21:02] LABS: HEMATOCRIT 34.5 % (37.0-47.0)
--- NOTE | 2020-09-19 22:02 | NUR ---
1900- PT DAUGHTER REPORTED THAT HER MOTHER WAS HAVING SOA, SWEATING AND C/O PAIN. PT GAVE MORPHINE PER ORDER OF 1MG. PT THEN FOUND TO HAVE SATS IN MID 80S CALLED RT FOR TX. PT CONTINUED TO HAVE DIFFCULTY EXPRESSING HOW SHE WAS FEELING WHICH IS NEW PER THE DAUGHTER OR NOTICES IT MORE SO AFTER MORPHINE. C/O NAUSEA WELL. NEAL JENKINS NOTIFIED ORDERS FOR EKG, TROPONIN AND OTHER LABS. CT OF HEAD. 2200- ALL LABS AND TEST ARE BACK AND NEGATIVE, NEAL JENKINS NOTIFIED, ORDERS TO CONTINUE MONITORING. DAUGHTER HOME FOR THE NIGHT. CALL IF CHANGES. PT MORE ALERT NOW AND WAS ABLE TO TAKE PM MEDS WO DIFFICULTY.
--- NOTE | 2020-09-19 23:21 | NUR ---
PT B/P OF 78/42 CHECKED ON RT LOWER LEG WHICH DAUGHTER STATES RUNS LOW. LT LOWER ARM CHECKED AND WAS 104/64.
[2020-09-20] VITALS (240 sets, daily range): BP systolic 94–141; BP diastolic 47–85; PULSE 55–73; TEMP 97.3–98.1; O2SAT 89–100
--- NOTE | 2020-09-20 01:15 | NUR ---
PT NOT KEEPING BIPAP ON THAT RT SET UP. SHE IS PULLING AT MASK WELL AFTER SWITCHING TO OXIMASK. RT NOTIFIED. MONITORING.
--- NOTE | 2020-09-20 04:50 | NUR ---
Pt feel asleep after taking off bipap. Oximask cont to be on, when making rounds pt will sometimes have it off. Put back on and reminded to leave it on a few times overnight. Overall rested well. 02 down to 3 liters now. Resp even and unlabored.
--- NOTE | 2020-09-20 05:36 | NUR ---
Refused to wake up and take 7am synthyroid. Med returned will pass on to day shift when pt more alert to take safley.
[2020-09-20 05:59] LABS: BASO % 0.2 % (0.0-2.0); EOS # 0.1 (0.0-0.7); GRAN # 5.3 (1.4-6.5); GRAN % 80.2 % (42.2-75.2); HEMOGLOBIN 11.1 g/dl (12.5-16.0); LYMPH # 0.6 (1.2-3.4); MEAN CELL VOLUME 100 fl (80.0-100.0); MEAN CORPUSCULAR HEMOGLOBIN 32 pg (27.0-31.0); MEAN CORPUSCULAR HGB CONC 32 g/dl (33.0-37.0); MEAN PLATELET VOLUME 10.5 fl (7.4-10.4); MONO # 0.5 (0.1-0.6); MONO % 8.1 % (1.7-9.3); PLATELET COUNT 332 K/mm3 (130-400); RED BLOOD COUNT 3.46 M/mm3 (4.10-5.30); REDCELL DISTRIBUTION WIDTH-CV 15.4 % (11.5-14.5)
[2020-09-20 06:02] LABS: CALCIUM 8.5 mg/dL (8.4-10.2); CREATININE, serum 2.87 (0.52-1.25); POTASSIUM 3.7 mmol/L (3.4-5.0)
[2020-09-20 06:12] LABS: HEMATOCRIT 34.7 % (37.0-47.0)
--- NOTE | 2020-09-20 13:25 | NUR ---
Arrives from medical via bed with RNx2. Very pleasant, KOOTENAI. Answers questions appropriately, no confusion noted at this time. Denies complaints of pain. SOA with exerc, refuses need for BiPAP. Daughter at side. Has multiple questions, answered as able.
--- NOTE | 2020-09-20 19:15 | NUR ---
RECEIVED REPORT FROM ZEHRA LEONARD. PATIENT IN BED WITH DAUGHTER AT BEDSIDE. PATIENT RESTING AND WATCHING TV. VITAL SIGNS STABLE. TWO NITRO PATCHES ON UPPER LEFT CHEST. PICC IN PLACE IN RIGHT UPPER ARM WITH DOBUTAMINE GTT INFUSING. VSS. OCAMPO FREE OF DEPENDENT LOOPS AND DRAINING TO GRAVITY. CALL LIGHT WITHIN REACH.
[2020-09-21] VITALS (555 sets, daily range): BP systolic 103–157; BP diastolic 57–99; PULSE 48–71; TEMP 97.7–98; O2SAT 53–100
--- NOTE | 2020-09-21 05:45 | NUR ---
PT had sudden onset SOA, RN responded to room then called this RT. Upon arrival sat 93%, pt labored breathing stating "I can't breathe". RN states pt's sat was in 70s just prior. Duoneb given, pt slightly calming with boost/sat up in bed and duoneb, but continued labored breathing asking for more help. Applied BiPAP, sat 100% on 30% FiO2 via BiPAP 15/12. Pt immediately responds, calming with BiPAP FFM on, within 5 minutes asking to take mask off. Encouraged pt to wear BiPAP a little longer, pt agrees. RN by room to monitor at this time.
--- NOTE | 2020-09-21 05:50 | NUR ---
PT CALLED FOR HELP AND FOUND PATIENT SLID DOWN IN THE BED, PALE AND LIPS CYANOTIC. SATS READ 75 AND HR WAS 72. I IMMEDIATELY PULLED HER UP AND ELEVATED THE HEAD OF THE BED. SHE WAS VERY ANXIOUS AND HYPERVENTILATING. CALLED RESPIRATORY THERAPIST IN THE ROOM AND RT ADMINISTERED BREATHING TREATMENT AND PATIENT WAS PLACED ON BIPAP POST TREATMENT. SATS CAME UP TO THE 90s AND WENT TO 100% ON BIPAP. PATIENT STATED SHE IS FEELING BETTER ON BIPAP AND HAS REGAINED BASELINE COLORATION.
[2020-09-21 05:55] LABS: BASO % 0.3 % (0.0-2.0); EOS # 0.4 (0.0-0.7); EOS % 3.3 % (0-4.0); GRAN # 9.2 (1.4-6.5); GRAN % 81.3 % (42.2-75.2); HEMATOCRIT 34.2 % (37.0-47.0); HEMOGLOBIN 11.2 g/dl (12.5-16.0); LYMPH % 8.5 % (20.0-51.0); MEAN CELL VOLUME 98 fl (80.0-100.0); MEAN CORPUSCULAR HEMOGLOBIN 32 pg (27.0-31.0); MEAN CORPUSCULAR HGB CONC 33 g/dl (33.0-37.0); MEAN PLATELET VOLUME 9.9 fl (7.4-10.4); MONO # 0.7 (0.1-0.6); MONO % 6.3 % (1.7-9.3); PLATELET COUNT 336 K/mm3 (130-400); RED BLOOD COUNT 3.49 M/mm3 (4.10-5.30); REDCELL DISTRIBUTION WIDTH-CV 15.5 % (11.5-14.5)
[2020-09-21 06:05] LABS: CALCIUM 8.7 mg/dL (8.4-10.2); CREATININE, serum 2.89 (0.52-1.25); POTASSIUM 3.8 mmol/L (3.4-5.0)
--- NOTE | 2020-09-21 09:52 | NUR ---
Assesment completed, patient alert/ partially oriented, denies pain at rest, vital signs/ o2 sats stable, remains on 2L., breathing is labored and patient is very activity intolerant, PT got her to the EOB and we stood her once, she was unable to bear weight longer than about 15-20 seconds, once we got her back in bed her breathing was extreemely labored and she started to get very anxious, I ended up giving her a little morphine and after a few minutes she has relaxed and her breathing is more controlled, vital signs are stable, I have discussed plan of care with hospitalist/Cardiologigst/pulm this morning, no big changes being made, I have spoke with the daughter on the phone and given an update, patient is now resting comfortably, morning meds given, she has a little breakfast, will continue to monitor
[2020-09-22] VITALS (394 sets, daily range): BP systolic 97–150; BP diastolic 61–114; PULSE 47–55; TEMP 97.7–98.5; O2SAT 55–100
--- NOTE | 2020-09-22 06:02 | NUR ---
Pt experiencing situational confusion. Pt was awake most of the night. Small amount of bright red blood noted on used tissues
[2020-09-22 06:34] LABS: ALBUMIN 3.5 gm/dL (3.5-5.0); BILIRUBIN,TOTAL 1.7 mg/dL (0.0-1.0); CALCIUM 8.8 mg/dL (8.4-10.2); CREATININE, serum 2.98 (0.52-1.25); POTASSIUM 4.3 mmol/L (3.4-5.0); TOTAL PROTEIN 7.4 gm/dL (6.4-8.2)
--- NOTE | 2020-09-22 07:15 | NUR ---
Report received from ZEHRA Jj. pT in bed resting with eyes closed. Will continue to tr.
--- NOTE | 2020-09-22 09:30 | NUR ---
Pt up standing at bedside with OT when call received for a ssistance. Upon entering pt was breathing very rapidly, pale, and 02 saturations a t 76%. Placed on OM and increased rate to 10L/Min, called RT and encouraged to breath slow and deep. Pt able to calm down and 02 saturations returned to 98% within 10 minutes. Difficulty gettign accurate BP as pt is very tense, does not always follow commands and BP is being taken on R lower arm. Resting in bed now, ordered breakfast. PT is alert and oriented to self. Urine draining clear yellow urine to dependent drainage. Edema present all over and +3 in legs. PICC to MANUEL. Dc'd dobutamine gtt per Dr. Dominguez. Will continue to monitor.
--- NOTE | 2020-09-22 10:32 | NUR ---
Initial visit; Patient having difficulty with her breathing apparatus, Advertising Specialist worked with it until a PA came in to help. Patient is now aware that Spiritual Care is available.
--- NOTE | 2020-09-22 11:51 | NUR ---
Nephrology consulted. Cardiology consulted. Palliative care consulted. SW attended clinical rounds with the team. Also present were the patient's daughter Dana, and Eliane Faust Palliative care nurse. The patient to be transferred to the floor. The patient's daughter to make decision whether she would like to continue with agressive care or go on comfort measures. SW will continue to monitor for safest discharge disposition and awaiting daughter's decision.
--- NOTE | 2020-09-22 13:28 | NUR ---
Daughter here at bedside, has questions for: Dr. Philippe regarding pulmonary HTN treatment, called him and relayed his message which is that there is no treatement at this time for the pulmonary hypertension that he would consider. Dr. Dominguez regarding potential for MVR surgery, relayed from Dr. Dominguez to daughter Dana that she is not a good candidate for the surgery and would most likely not tolerate it well. She also wanted to ask about the EF and found most recent Echo results of 30%. Relayed to Dana. EEG being done at this time.
--- NOTE | 2020-09-22 13:35 | NUR ---
Dr Cabrales made rounds on pt and talked with her daughter right after Dr Lopes saw the patient and talked with her daughter. aDna is very quick to report that her mother was fine and functioning well 30-45 days ago. She is aware that her mother has pulmonary hypertension, mitral valve insufficiency and now is in dealing with declining renal function with creatinine at 2.57. Daughter is very clear that the only place her mother will go, other than to another hospital, is home with her. She is aware that her mother's prognosis is very poor but is also wanting everything done that can be done to improve her mother's health. She is asking about the heart surgery for her mother and when/where is it could be done. She is concerned about her mother's EF and very clearly wants her mother to live. She keeps asking for a pill that will make her mother's breathing better, advised that there a breathing treatments and steroids that my help but the problem still remains. She told me very clearly that "I can't just sit and watch my mother ". We did talk about the risks of procedures and that what they will gain from a procedure vs the strength/discomfort should all be given thought. At this point, she is wanting to pursue the heart surgery if her mother is a candidate, she would like to avoid dialysis because traveling to and from dialysis would be too hard on her mom. We talked about how she would manage her mother's care if she was too weak to move about the house. Her response was that she would talk with her sisters for a final decisions but mom was coming home and she would take care of her and she didn't want to watch her mother .
--- NOTE | 2020-09-22 15:28 | NUR ---
Report given to ZEHRA Lerma. pT transferred to medical bed and transferred upt to medical floor with ZEHRA Ruiz. Pt transferred with all bleonigns, daughter accompanied. Florentin to resume care.
--- NOTE | 2020-09-22 15:29 | NUR ---
PT TO ROOM 317 WITH REPORT FROM JHONNY SHAHID. PT IS ALERT BUT CONFUSED AND NON VERBAL. GRUNTS WITH BREATHING. RT AT BEDSIDE ON TRANSFER. O2 PER OXYMASK. DAUGHTER AT BEDSIDE VERY INVOLVED WITH CARE. LUNGS DIMINISHED ALL TURNER. TELE ON AND READING. PICC LINE TO MANUEL. PT APPEARS CALM IN NO DISTRESS.
--- NOTE | 2020-09-22 17:14 | NUR ---
PT AGITATED AND NEW ORDERS RECIEVED THIS NURSE ENTERED ROOM TO ADMINISTER IV ATIVAN, PT'S DAUGHTER REPORTING THAT PT HAD SEIZURE LIKE ACTIVITY. HOSPITALIST AND EDGER FEEDER CONTACTED. PT WAS ASYSTOLE REPORTED BY TELEMETRY. PT WAS PRONOUNCED @1648. POSTMORTEM CARES PROVIDED. DAUGHTER BROUGHT BACK IN AFTER CARES PROVIDED.
--- NOTE | 2020-09-22 17:49 | NUR ---
Call placed to [facility]; patient will not be a candidate for donation due to her hx of forgetfulness/confusion and taking Aricept. Confirmation # [id number].
--- NOTE | 2020-09-22 22:01 | NUR ---
RECEIVED REPORT FROM DAY NURSE PATIENT HAD ALREADY PASSED ON FAMILY WAS INATTENDANCE.THEY STAYED IN THE ROOM LEFT AT 2100.NOTIFIED HOUSE MORTUARY INFORMED.BODY HAS BEEN TO TRANSFERRED TO [facility].
== END 2020-09-22 22:00 | disposition expired ==
LOC: COL.ER 14:29 → MEDICAL 16:49 → ICU 09-20 13:47 → MEDICAL 09-22 15:26
PROVIDERS: Emergency Medicine; Internal Medicine Cardiovascular Disease; Physician Assistant; Student in an Organized Health Care Education/Training Program; ADMIT Internal Medicine
PROC: 02HV33Z Insertion of Infusion Device into Superior Vena Cava, Percutaneous Approach (ICD-10-PCS; principal; 2020-09-17)
DX: I13.0 Hypertensive heart and chronic kidney disease with heart failure and stage 1 through stage 4 chronic kidney disease, or unspecified chronic kidney disease (principal); I50.23 Acute on chronic systolic (congestive) heart failure; I21.A1 Myocardial infarction type 2; G93.41 Metabolic encephalopathy; J96.01 Acute respiratory failure with hypoxia; N17.9 Acute kidney failure, unspecified; E87.3 Alkalosis; E87.1 Hypo-osmolality and hyponatremia; N18.9 Chronic kidney disease, unspecified; I27.20 Pulmonary hypertension, unspecified; I08.1 Rheumatic disorders of both mitral and tricuspid valves; I42.9 Cardiomyopathy, unspecified; Z66 Do not resuscitate; E11.22 Type 2 diabetes mellitus with diabetic chronic kidney disease; E03.9 Hypothyroidism, unspecified; I25.10 Atherosclerotic heart disease of native coronary artery without angina pectoris; E78.5 Hyperlipidemia, unspecified; F32.9 Major depressive disorder, single episode, unspecified; K21.9 Gastro-esophageal reflux disease without esophagitis; R74.01 Elevation of levels of liver transaminase levels; G47.33 Obstructive sleep apnea (adult) (pediatric); K59.00 Constipation, unspecified; G89.29 Other chronic pain; R94.31 Abnormal electrocardiogram [ECG] [EKG]; R56.9 Unspecified convulsions; J44.9 Chronic obstructive pulmonary disease, unspecified; E11.649 Type 2 diabetes mellitus with hypoglycemia without coma; F03.90 Unspecified dementia, unspecified severity, without behavioral disturbance, psychotic disturbance, mood disturbance, and anxiety; Z20.822 Contact with and (suspected) exposure to COVID-19; E11.42 Type 2 diabetes mellitus with diabetic polyneuropathy; Z79.4 Long term (current) use of insulin; Z79.82 Long term (current) use of aspirin; Z90.49 Acquired absence of other specified parts of digestive tract; Z90.710 Acquired absence of both cervix and uterus; Z87.891 Personal history of nicotine dependence; Z88.1 Allergy status to other antibiotic agents; Z88.2 Allergy status to sulfonamides; Z88.6 Allergy status to analgesic agent
CPT/HCPCS: 99223-AI; 99233-AI; A9500; C1751; J1160; J1250; J1644; J1815; J1940; J2270; J2405; J2785; J7070